=== PATIENT | female | born 1960 | race Two or more races ===

== ENCOUNTER 2025-03-20 11:47 | Emergency (ER) | payer BC, SELFPAY ==
--- NOTE | 2025-03-20 11:56 | EKG_ITS ---
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
[2025-03-20 12:06] VITALS: BP 192/74; PULSE 72; RESP 18; TEMP 36.5; O2SAT 98; BMI 35.9
[2025-03-20 13:12] VITALS: BP 157/70; PULSE 81; RESP 16; TEMP 36.7; O2SAT 96
--- NOTE | 2025-03-20 13:28 | XR_ITS ---
Examination: CT brain head without contrast. 2-D sagittal coronal reconstructions Date and time of exam:March 20, 2025 1600 hours INDICATIONS: Generalized headaches and dizziness onset today CTDI: vol (mGy):49 DLP: (mGycm):947 Technique: Multiple CT axial sections of the brain have been obtained, 5 mm slice thickness. Contrast has not been administered. 2-D sagittal, coronal reconstructions have been obtained Low dose protocols were performed. One or more of the following dose reduction techniques were used; automated exposure control, adjustment of the mA and/or KV according to patient size, use of iterative reconstruction technique. Findings: No significant ventricular enlargement. Intra-axial or extra-axial hemorrhage density is not seen. No mass effect or midline shift Basal cisterns are not remarkable. Fourth ventricle is midline. Cranial vault intact. Impression: Negative for acute hemorrhage, mass effect or midline shift Advise clinical correlation and follow-up accordingly
--- NOTE | 2025-03-20 13:28 | XR_ITS ---
Examination: PA lateral chest 2 views TECHNIQUE: Upright PA lateral chest 2 views Date and time: March 20, 2025 1539 hours INDICATIONS: Chest pain beginning 2 days ago. FINDINGS: Normal heart size Lungs are clear. The osseous structures are intact IMPRESSION: No active disease
[2025-03-20 13:58] LABS: Basophils # (Auto) 0.1 Thou/mm3 (0.0-0.2); Basophils % (Auto) 1 % (0-2.5); Eosinophils # (Auto) 0.3 Thou/mm3 (0.0-0.5); Eosinophils % (Auto) 2 % (0-10); Hematocrit 37.7 % (36.0-46.0); Hemoglobin 12.5 g/dL (12.0-16.0); Immature Granulocytes % (Auto) 1 % (0-0); Immature Granulocytes Auto 0.06 Thou/mm3 (0.00-0.00); Lymphocytes # (Auto) 1.7 Thou/mm3 (1.0-4.8); Lymphocytes % (Auto) 16 % (10-50); Mean Corpuscular HGB Conc 33.2 g/dl (31.0-37.0); Mean Corpuscular Hemoglobin 25.3 pg (25.0-35.0); Mean Corpuscular Volume 76 fL (80-100); Monocytes # (Auto) 0.4 Thou/mm3 (0.0-0.8); Monocytes % (Auto) 4 % (0-12); Neutrophils # (Auto) 8.1 Thou/mm3 (1.8-7.7); Neutrophils % (Auto) 76 % (37-80); Nucleated Red Blood Cell % 0 /100 WBC (0); Platelet Count 354 Thou/mm3 (140-440); RDW Standard Deviation 37.8 fL (36.4-46.3); Red Blood Count 4.94 Miln/mm3 (4.00-5.20); White Blood Count 10.6 Thou/mm3 (3.6-11.0)
[2025-03-20 14:18] LABS: B-Type Natriuretic Peptide 56 pg/mL (0-100)
[2025-03-20 14:20] LABS: Alanine Aminotransferase 33 U/L (10-49); Albumin, Serum 4.7 gm/dL (3.4-4.8); Albumin/Globulin Ratio 1.9 (1.2-2.2); Alkaline Phosphatase 91 U/L (46-116); Anion Gap 5 (7-16); Aspartate Amino Transferase 24 U/L (0-34); BUN/Creatinine Ratio 16 Ratio (12-20); Bilirubin,Total 0.5 mg/dL (0.3-1.2); Blood Urea Nitrogen 24 mg/dL (9-23); Calcium 9.8 mg/dL (8.3-10.6); Calcium (Corrected) 9.8 mg/dL (8.5-10.1); Carbon Dioxide 25.9 mMol/L (20.0-31.0); Chloride 107 mMol/L (98-107); Creatinine (Component) 1.5 mg/dL (0.6-1.3); Estimated Creatinine Clearance 38.3 mL/min (>60); Globulin 2.5 gm/dL (2.3-3.5); Glucose 158 mg/dL (74-106); Lipase 46 U/L (12-53); Osmolality,Calculated 282 (275-295); Potassium 5.1 mMol/L (3.4-5.1); Sodium 138 mMol/L (136-145); Total Protein 7.2 gm/dL (5.7-8.2); Troponin I < 0.020 ng/mL (0.0-0.045); eGFR 39 See Note
--- NOTE | 2025-03-20 16:00 | PD.RESCONSUL ---
HPI Data of Consult Primary Care Provider: Physician No Primary/Family Consult Narrative cc:: cc: Exam Vital Signs Temp Pulse Resp BP Pulse Ox O2 Del Method 98.1 F 81 16 157/70 H 96 Room Air 03/20/25 13:12 03/20/25 13:12 03/20/25 13:12 03/20/25 13:12 03/20/25 13:12 03/20/25 13:12 Results Labs 03/20/25 13:52 03/20/25 13:52 Labs: Short CBC 03/20/25 Range/Units 13:52 WBC 10.6 (3.6-11.0) Thou/mm3 Hgb 12.5 (12.0-16.0) g/dL Hct 37.7 (36.0-46.0) % Plt Count 354 (140-440) Thou/mm3 BMP 03/20/25 13:52 Sodium 138 Potassium 5.1 Chloride 107 Carbon Dioxide 25.9 BUN 24 H Creatinine 1.5 H Glucose 158 H Calcium 9.8 Cardiac Enzymes 03/20/25 Range/Units 13:52 Troponin I < 0.020 (0.0-0.045) ng/mL Liver Function 03/20/25 Range/Units 13:52 Total Bilirubin 0.5 (0.3-1.2) mg/dL AST 24 (0-34) U/L ALT 33 (10-49) U/L Alkaline Phosphatase 91 (46-116) U/L Albumin 4.7 (3.4-4.8) gm/dL Medications Home Medications and Allergies Home Medications ?Medication ?Instructions ?Recorded ?Confirmed ?Type amlodipine 10 mg tablet (Norvasc) 10 mg PO QDAY #0 tabs 11/08/15 History ibuprofen 800 mg tablet 800 mg PO Q8HR PRN PAIN #0 tabs 11/08/15 History lisinopril 40 mg tablet 40 ml PO QDAY #0 tabs 11/08/15 History metformin 500 mg tablet 500 mg PO BIDAC #0 tabs 11/08/15 History (Glucophage) ranitidine HCl 150 mg tablet 150 mg PO BID #0 tabs 11/08/15 History (Zantac) Allergies Allergy/AdvReac Type Severity Reaction Status Date / Time Sulfa (Sulfonamide AdvReac Mild Rash Verified 03/20/25 11:52 Antibiotics)
--- NOTE | 2025-03-20 17:26 | PD.EDDIZZY ---
ED Dizzyness RME/HPI General Chief Complaint: Dizziness Stated Complaint: HTN,numbness left side, dizzy Time Seen by Provider: 03/20/25 13:27 Arrival date/time: 03/20/25 11:47 RME / HPI RME / HPI Narrative: 65-year-old female with history of hypertension and diabetes over the past 30 years presents to emergency department with complaint of dizziness patient states that she had an MRI in 2017 requiring 2 stents and 1 more stent was placed in 2020 for patient states she recently moved back from [place] back to the [place] and has not establish care with a visual merchandising specialist yet. She denies chest pain she attests to numbness and tingling to left upper extremity she denies shortness of breath. Related Data Home Medications ?Medication ?Instructions ?Recorded ?Confirmed amlodipine 10 mg tablet (Norvasc) 10 mg PO QDAY #0 tabs 11/08/15 ibuprofen 800 mg tablet 800 mg PO Q8HR PRN PAIN #0 tabs 11/08/15 lisinopril 40 mg tablet 40 ml PO QDAY #0 tabs 11/08/15 metformin 500 mg tablet 500 mg PO BIDAC #0 tabs 11/08/15 (Glucophage) ranitidine HCl 150 mg tablet 150 mg PO BID #0 tabs 11/08/15 (Zantac) Allergies Allergy/AdvReac Type Severity Reaction Status Date / Time Sulfa (Sulfonamide AdvReac Mild Rash Verified 03/20/25 11:52 Antibiotics) Review of Systems Review of Systems Systems Reviewed: All systems reviewed, normal except as documented Constitutional Constitutional: Reports system reviewed and no additional complaints, except as documented ENT Ears, Nose, Mouth, and Throat: Reports system reviewed and no additional complaints, except as documented Cardiovascular Cardiovascular: Reports system reviewed and no additional complaints, except as documented Respiratory Respiratory: Reports system reviewed and no additional complaints, except as documented Musculoskeletal Musculoskeletal: Reports system reviewed and no additional complaints, except as documented ED Exam General General appearance: Present in no apparent distress Head Head exam: Present atraumatic and normocephalic ENT ENT exam: Present normal exam and normal oropharynx Chest Chest inspection: Present normal inspection and symmetric chest wall rise Respiratory Respiratory exam: Present normal lung sounds bilaterally Cardiovascular Cardiovascular exam: Present regular rate and normal rhythm Extremities Exam Extremities exam: Present normal inspection and full ROM Neurological Exam Neurological exam: Present alert, oriented X3 and CN II-XII intact Psychiatric Psychiatric exam: Present normal affect and normal mood Course Quality Measures none Orders Category Date Time Status EKG (ED ONLY) *Do not use* NOW Care 03/20/25 11:56 Completed Consult to Cardiology Stat Cons 03/20/25 17:[address] head/brain wo con Stat Exams 03/20/25 13:28 Completed EKG (ED Only) Stat Exams 03/20/25 11:56 Draft XR chest 2V Stat Exams 03/20/25 13:28 Completed B-Type Natriuretic Peptide Stat Lab 03/20/25 13:52 Completed CBC Stat Lab 03/20/25 13:52 Completed Comprehensive Metabolic Panel Stat Lab 03/20/25 13:52 Completed Lipase Stat Lab 03/20/25 13:52 Completed Troponin I Stat Lab 03/20/25 13:52 Completed Vital Signs Vital signs: Vital Signs Temperature 97.7 F 03/20/25 12:06 Pulse Rate 72 03/20/25 12:06 Respiratory Rate 18 03/20/25 12:06 Blood Pressure 192/74 H 03/20/25 12:06 Pulse Oximetry (%) 98 03/20/25 12:06 Oxygen Delivery Method Room Air 03/20/25 12:06 Dizziness MDM Narrative MDM Narrative:: patient with hx of DM and previous PA presents to ED with complaints of dizziness and numbness to left arm. Labs, EKG and imaging studies were unremarkable, patient remained afebrile, non toxic appearing, in no cardiac or respiratory distress through out ED stay, encouraged to f/up with PCP for Cardiac referral no life threatening emergency noted at today's ED visit. Patient data External records reviewed:: None Clinical information provided by:: patient Social determinants that could affect healthcare access:: none Patient has the following chronic illnesses:: DM, Hx of PA with stent placement How is presenting disease/condition affected by chronic disease/condition?: exacerbated by Evaluation data The following diagnostics were reviewed and interpreted by me:: lab results, radiology exam(s) and EKG tracing(s) Lab and/or radiology exams considered but not ordered:: both considered and ordered Interpretation Summary: unremarkable labs, EKG and imaging study Medications / Prescriptions Medications or Prescriptions considered but not ordered:: na Medication administrations:: na Consultations Consultation(s) initiated? (list below): No Diagnosis Dizziness Differential Diagnosis: adverse reaction to drug, benign paroxysmal positional vertigo, orthostatic hypotension, cerebrovascular accident and transient cerebral ischemia Most likely diagnosis given after review of the tests above:: stress reaction Admission Indicated Admission indicated?: not indicated Admission Request Was there a request for admission?: No Disposition Plan Disposition Plan: Discharge Discharge Attestation Discharge Attestation: The patient and all family members were given an opportunity to ask questions and understood the discharge instructions. Discharge instructions specifically effects, indications for sooner follow up or return to the emergency department, and the expected course of current diagnosis. Patient condition: Stable Discharge Plan Plan Patient Disposition: HOME (Self Care) Prescriptions/Referrals Prescriptions/Med Rec: No Action metformin [Glucophage] 500 MG tablet 500 mg PO BIDAC Qty: 0 ibuprofen 800 MG tablet 800 mg PO Q8HR PRN (Reason: PAIN) Qty: 0 amlodipine [Norvasc] 10 MG tablet 10 mg PO QDAY Qty: 0 lisinopril 40 MG tablet 40 ml PO QDAY Qty: 0 ranitidine HCl [Zantac] 150 MG tablet 150 mg PO BID Qty: 0 Referrals: No Primary/Family,Physician [Primary Care Provider] - In 1 week Problem List Clinical Impression: Dizziness Patient/Caregiver Discharge Instructions Education Materials: ED Dizziness, Uncertain Cause Print Language: Telugu Stand Alone Forms: [employer] Info., Patient Portal Info Letter
[2025-03-20 19:02] VITALS: BP 184/84; PULSE 77; RESP 17; TEMP 36.7; O2SAT 98
--- NOTE | 2025-03-20 19:04 | PC.NURSE ---
notified provider of blood pressure 184/84. per provider pt is ok for discharge. provider spoke to patient regarding results. no questions or concerns at this time.
--- NOTE | 2025-03-20 21:10 | PD.EVENT ---
Documentation for date of: 03/20/25 Event Note Event Note: Family requested me to see the pt but patient was discharged before I evalueted the patient with instructions to follow up with PCP and cardiology.
== END 2025-03-20 19:15 | disposition home or self-care (01) ==
PROVIDERS: Physician Assistant; Emergency Provider Emergency Medicine
DX: R42 Dizziness and giddiness (principal); R07.9 Chest pain, unspecified; R51.9 Headache, unspecified; R94.31 Abnormal electrocardiogram [ECG] [EKG]
CPT/HCPCS: 36415; 70450; 71046; 80053; 83690; 83880; 84484; 85025; 93005; 99284

== ENCOUNTER → 2025-05-16 | Outpatient (CLI) | payer BC, SELFPAY ==
[2025-05-16 13:12] LABS: Basophils # (Auto) 0.1 Thou/mm3 (0.0-0.2); Basophils % (Auto) 1 % (0-2.5); Eosinophils # (Auto) 0.3 Thou/mm3 (0.0-0.5); Eosinophils % (Auto) 4 % (0-10); Hematocrit 36.4 % (36.0-46.0); Hemoglobin 11.8 g/dL (12.0-16.0); Immature Granulocytes Auto 0.03 Thou/mm3 (0.00-0.00); Lymphocytes # (Auto) 1.6 Thou/mm3 (1.0-4.8); Lymphocytes % (Auto) 18 % (10-50); Mean Corpuscular HGB Conc 32.4 g/dl (31.0-37.0); Mean Corpuscular Hemoglobin 25.3 pg (25.0-35.0); Mean Corpuscular Volume 78 fL (80-100); Monocytes # (Auto) 0.5 Thou/mm3 (0.0-0.8); Monocytes % (Auto) 5 % (0-12); Neutrophils # (Auto) 6.1 Thou/mm3 (1.8-7.7); Neutrophils % (Auto) 72 % (37-80); Nucleated Red Blood Cell # 0.00 Thou/mm3 (0.00-0.00); Nucleated Red Blood Cell % 0 /100 WBC (0); Platelet Count 370 Thou/mm3 (140-440); RDW Standard Deviation 39.5 fL (36.4-46.3); Red Blood Count 4.66 Miln/mm3 (4.00-5.20); White Blood Count 8.6 Thou/mm3 (3.6-11.0)
[2025-05-16 13:23] LABS: Glucose Estimated Average 171 mg/dL (80-131); Hemoglobin A1C 7.6 % Hgb (4.8-6.0)
[2025-05-16 13:31] LABS: Vitamin B12 549 pg/mL (211-911); Vitamin D 25 Hydroxy Total 27.3 ng/mL (7.3-40.2)
[2025-05-16 13:49] LABS: Alanine Aminotransferase 19 U/L (10-49); Albumin, Serum 4.1 gm/dL (3.4-4.8); Albumin/Globulin Ratio 2.2 (1.2-2.2); Alkaline Phosphatase 76 U/L (46-116); Anion Gap 10 (7-16); Aspartate Amino Transferase 18 U/L (0-34); BUN/Creatinine Ratio 15 Ratio (12-20); Bilirubin,Total 0.4 mg/dL (0.3-1.2); Blood Urea Nitrogen 20 mg/dL (9-23); Calcium 9.9 mg/dL (8.3-10.6); Calcium (Corrected) 9.9 mg/dL (8.5-10.1); Carbon Dioxide 27.1 mMol/L (20.0-31.0); Cardiac Risk Estimate 4.8 RATIO (3.7-5.6); Chloride 106 mMol/L (98-107); Cholesterol 172 mg/dL (132-200); Creatinine (Component) 1.3 mg/dL (0.6-1.3); Globulin 1.9 gm/dL (2.3-3.5); Glucose 110 mg/dL (74-106); HDL Cholesterol 36 mg/dL (40-60); LDL Cholesterol,Calculated 106 mg/dL (0-130); Osmolality,Calculated 288 (275-295); Potassium 4.4 mMol/L (3.4-5.1); Sodium 143 mMol/L (136-145); Thyroid Stimulating Hormone 1.93 uIU/mL (0.55-4.78); Total Protein 6.0 gm/dL (5.7-8.2); Triglycerides 150 mg/dL (30-150); eGFR 46 See Note
[2025-05-16 14:00] LABS: Uric Acid 7.5 mg/dL (3.1-7.8)
== END | disposition home or self-care (01) ==
PROVIDERS: PCP Internal Medicine; Referring Provider Internal Medicine; Visit Provider Internal Medicine
DX: Z00.00 Encounter for general adult medical examination without abnormal findings (principal); E11.9 Type 2 diabetes mellitus without complications; I10 Essential (primary) hypertension; E78.5 Hyperlipidemia, unspecified
CPT/HCPCS: 36415; 80053; 80061; 81001; 82306; 82607; 83036; 84443; 84550; 85025

== ENCOUNTER → 2025-05-30 | Outpatient (CLI) | payer BC, SELFPAY ==
[2025-05-30 13:47] LABS: Collection Type, Urine Clean Catch
[2025-05-30 14:14] LABS: Basophils # (Auto) 0.1 Thou/mm3 (0.0-0.2); Basophils % (Auto) 1 % (0-2.5); Eosinophils # (Auto) 0.2 Thou/mm3 (0.0-0.5); Eosinophils % (Auto) 3 % (0-10); Hematocrit 38.1 % (36.0-46.0); Hemoglobin 12.1 g/dL (12.0-16.0); Immature Granulocytes Auto 0.02 Thou/mm3 (0.00-0.00); Lymphocytes # (Auto) 1.5 Thou/mm3 (1.0-4.8); Lymphocytes % (Auto) 17 % (10-50); Mean Corpuscular HGB Conc 31.8 g/dl (31.0-37.0); Mean Corpuscular Hemoglobin 25.4 pg (25.0-35.0); Mean Corpuscular Volume 80 fL (80-100); Monocytes # (Auto) 0.5 Thou/mm3 (0.0-0.8); Monocytes % (Auto) 5 % (0-12); Neutrophils # (Auto) 6.8 Thou/mm3 (1.8-7.7); Neutrophils % (Auto) 74 % (37-80); Nucleated Red Blood Cell # 0.00 Thou/mm3 (0.00-0.00); Nucleated Red Blood Cell % 0 /100 WBC (0); Platelet Count 398 Thou/mm3 (140-440); RDW Standard Deviation 40.7 fL (36.4-46.3); Red Blood Count 4.77 Miln/mm3 (4.00-5.20); White Blood Count 9.1 Thou/mm3 (3.6-11.0)
[2025-05-30 14:20] LABS: Bilirubin,Urine Negative (Negative); Blood,Urine Negative (Negative); Clarity,Urine Clear (Clear/Hazy); Color,Urine Lt-Yellow (Lt Yel-Yel); Glucose, Urine Negative (Negative); Ketones,Urine Negative (Negative); Leukocyte Esterase,Urine Negative (Negative); Nitrite,Urine Negative (Negative); PH,Urine 6.0 (5.0-7.0); Protein,Urine 2+ (Neg - Trace); RBC,Urine 1 /hpf (0-3); Specific Gravity,Urine 1.015 (1.001-1.035); Squamous Epithelial Cell,Urine < 1 /hpf (0-5); Urobilinogen,Urine Negative mg/dL (0.0-1.0); WBC,Urine 2 /hpf (0-5)
[2025-05-30 14:47] LABS: Creatinine MALB Rnd Ur 66 mg/dL (30-125); Microalbumin Creat Ratio 2388 mg/gCrea (<30); Microalbumin, Random Urine 1576 mg/L (0-300)
[2025-06-05 06:35] LABS: ANA Pattern NUCLEAR, NUCLEOLAR; ANA Screen, IFA POSITIVE (NEGATIVE); ANA Titer 1:80 titer; CCP Antibody (IgG)* <16 Units; DNA (ds) Antibody* 1 IU/mL
== END | disposition home or self-care (01) ==
LOC: COPL 12:26
PROVIDERS: PCP Internal Medicine; Referring Provider Internal Medicine; Visit Provider Internal Medicine
DX: M12.38 Palindromic rheumatism, other specified site (principal); E11.9 Type 2 diabetes mellitus without complications
CPT/HCPCS: 36415; 81001; 82043; 82570; 85025; 86038; 86039; 86200; 86225

== ENCOUNTER 2025-06-04 23:47 | Inpatient (IN) | payer BC, SELFPAY ==
[2025-06-04 23:56] VITALS: BMI 39.0
[2025-06-04 23:57] VITALS: BP 199/93; PULSE 102; RESP 19; TEMP 36.7; O2SAT 96
[2025-06-05] VITALS (22 sets, daily range): BP systolic 131–231; BP diastolic 57–111; PULSE 59–97; RESP 15–24; TEMP 35.9–37.1; O2SAT 92–100; BMI 39.2
--- NOTE | 2025-06-05 00:20 | PD.EDCHEST ---
ED Chest Pain RME/HPI General Chief Complaint: Chest Pain Stated Complaint: CHEST PAIN Time Seen by Provider: 06/05/25 00:38 Arrival date/time: 06/04/25 23:47 RME / HPI RME / HPI narrative: Dr. Bush?s Main ED Evaluation: 65yo female with known CAD/CHF undergoing changes in antihypertensive regimen presenting with intermittent substernal chest pain lasting several months in duration with increasing frequency and intensity in the last 24 hrs. Patient notified EMS, who administered baby aspirin and nitroglycerin with transient improvement. Associated chest pressure, shortness of breath, occasional lightheadedness, but no near syncope. No palpitations. Noted exertional component, but denies pleuritic component. PMH includes DM, HTN, CAD/CHF. No history of FL, aFib. PSH included coronary artery stent placement (3 stents) in 2016 and 2023. Social history unremarkable. Related Data Home Medications ?Medication ?Instructions ?Recorded ?Confirmed amlodipine 10 mg tablet (Norvasc) 10 mg PO QDAY #0 tabs 11/08/15 ibuprofen 800 mg tablet 800 mg PO Q8HR PRN PAIN #0 tabs 11/08/15 lisinopril 40 mg tablet 40 ml PO QDAY #0 tabs 11/08/15 metformin 500 mg tablet 500 mg PO BIDAC #0 tabs 11/08/15 (Glucophage) ranitidine HCl 150 mg tablet 150 mg PO BID #0 tabs 16 (Zantac) Allergies Allergy/AdvReac Type Severity Reaction Status Date / Time Sulfa (Sulfonamide AdvReac Mild Rash Verified 03/20/25 11:52 Antibiotics) Review of Systems Review of Systems Systems Reviewed: All systems reviewed, normal except as documented Past Medical History Social History SMOKING STATUS: Never smoker ED Exam Narrative Physical exam: GENERAL APPEARANCE: alert and oriented x 4, well-developed, well-nourished, no acute distress VITALS: All vitals were reviewed and the pulse ox is 98% on room air, which is normal according to my interpretation. Markedly hypertensive. HEENT: Normocephalic, atraumatic; pupils equal, round, reactive to light; EOMI; mucous membranes pink, moist; oropharynx clear NECK: Supple, no JVD LUNGS: CTABL; no wheezes, no rales, no rhonchi HEART: Regular rate, regular rhythm; normal S1, S2; no murmurs ABDOMEN: non distended; normal BS; soft, no tenderness, no guarding, no rebound; no masses, no organomegaly, no hernia BACK: no CVA tenderness EXTREMITIES: atraumatic; no edema NEUROLOGIC: awake; alert and oriented x4; cranial nerves II-XII grossly intact; no focal sensory or motor deficits PSYCHIATRIC: appropriate mood and affect SKIN: warm, dry, normal color; no rashes Course Course Course Narrative: CXR is ordered for determining the etiology of chest pain. Quality Measures none Orders Category Date Time Status Retail Assistant Manager STAT Care 06/05/25 00:40 Active Continuous Pulse Oximetry ONCE Care 06/05/25 00:40 Active EKG (ED ONLY) *Do not use* NOW Care 06/05/25 00:40 Completed EKG (ED ONLY) *Do not use* NOW Care 06/05/25 04:05 Completed Insert IV NOW Care 06/05/25 00:40 Active Insert IV STAT Care 06/05/25 00:40 Active EKG (ED Only) Stat Exams 06/05/25 00:40 Draft EKG (ED Only) Stat Exams 06/05/25 04:05 Ordered XR chest 1V portable Stat Exams 06/05/25 00:40 Taken B-Type Natriuretic Peptide Stat Lab 06/05/25 01:13 Completed CBC Stat Lab 06/05/25 01:13 Completed Comprehensive Metabolic Panel Stat Lab 06/05/25 01:13 Completed Magnesium Stat Lab 06/05/25 01:13 Completed Troponin I Stat Lab 06/05/25 01:13 Completed Troponin I Stat Lab 06/05/25 03:00 Completed Troponin I Stat Lab 06/05/25 05:00 Ordered Diltiazem Inj [Cardizem Inj] Med 06/05/25 00:31 Discontinued 10 mg IV X1 ONE Diltiazem Inj [Cardizem Inj] Med 06/05/25 04:19 Discontinued 10 mg IV X1 ONE Insulin Regular Med 06/05/25 03:14 Discontinued 8 unit IV X1 ONE Morphine* Inj Med 06/05/25 00:31 Discontinued 4 mg IVP X1 ONE Nitroglycerin Oint 2% [Nitro-paste Oint 2%] Med 06/05/25 00:19 Discontinued 2 inch TOP X1 ONE Prochlorperazine Inj [Compazine Inj] Med 06/05/25 00:31 Discontinued 5 mg IV X1 ONE Sodium Chloride 0.9% 250 ml [Ns] 250 ml Med 06/05/25 00:40 Discontinued IV 250 mls/hr amLODIPine BESYLATE [Norvasc] Med 06/05/25 04:27 Discontinued 10 mg PO X1 ONE Oxygen Delivery NOW RT 06/05/25 00:40 Active Vital Signs Vital signs: Vital Signs Temperature 98.1 F 06/04/25 23:57 Pulse Rate 102 H 06/04/25 23:57 Respiratory Rate 19 06/04/25 23:57 Blood Pressure 199/93 H 06/04/25 23:57 Pulse Oximetry (%) 96 06/04/25 23:57 Oxygen Delivery Method Room Air 06/04/25 23:57 Chest Pain MDM Narrative MDM Narrative:: Scribe Attestation: 06/05/25 - ILisa am scribing for and in the presence of Dr. Bush. 65yo female with known CAD/CHF undergoing changes in antihypertensive regimen presenting with intermittent substernal chest pain lasting several months in duration with increasing frequency and intensity in the last 24 hrs. Patient notified EMS, who administered baby aspirin and nitroglycerin with transient improvement. Please see PE findings. Lab markers demonstrated marginally elevated WBC count of 12, chronic anemia with Hgb 11.1, left shift without bandemia. Chemistries notable for elevated bslood sugar of 660 without anion gap, Creatinine mildly elevated with diminished GFR 39, initial troponin undetected, BNP 195. CXR demonstrated mild cardiomegaly without overt pulmonary edema, infiltrate, or pneumothorax. EKG without signs of evolving FL. Patient placed on fishing tackle repairer, marked hypertensive and treated with a combination of topical nitrates, IV narcotic analgesics, and CCBs with gradual reduction of blood pressure. Patient received IV fluids and regular insulin for hyperglycemia. No signs of ketosis. Patient underwent serial troponin and EKG with markedly increased troponin in the span of 2 hours which is likely due to hypertensive episode although cannot r/o underlying myocardial ischemia. Patient will be admitted for further monitoring and treatment. Dx: hypertensive urgency, NSTEMI, chronic renal insufficiency, hyperglycemia without ketosis Patient data External records reviewed:: [facility] previous records (Per chart review, patient was seen here on 03/20/25 for dizziness.) Clinical information provided by:: patient Social determinants that could affect healthcare access:: none Patient has the following chronic illnesses:: DM, HTN, CAD/CHF How is presenting disease/condition affected by chronic disease/condition?: exacerbated by Evaluation data The following diagnostics were reviewed and interpreted by me:: lab results, radiology exam(s) and EKG tracing(s) Lab and/or radiology exams considered but not ordered:: none Interpretation Summary: CXR shows mild cardiomegaly, no overt pulmonary edema, pleural effusions, infiltrate, or pneumothorax, according to my interpretation. EKG done at 2351, sinus tachycardia, rate of 101, no acute pathological ST segment changes, evidence of previous inferior wall FL, no ectopy, according to my interpretation. Repeat EKG done at 0442, sinus rhythm, rate of 86, no acute pathological ST segment changes, evidence of previous inferior wall FL, no ectopy, according to my interpretation. Medications / Prescriptions Medications or Prescriptions considered but not ordered:: none Medication administrations:: Medication Administration History Discontinued Medications Amlodipine Besylate (Amlodipine Besylate 5 Mg Tablet) 10 mg PO X1 ONE Stop: 06/05/25 04:28 Diltiazem HCl (Diltiazem Inj 5 Mg/Ml Vial 5 Ml) 10 mg IV X1 ONE Stop: 06/05/25 00:32 Last Admin: 06/05/25 00:52 Dose: 10 mg Documented By: ABAD Diltiazem HCl (Diltiazem Inj 5 Mg/Ml Vial 5 Ml) 10 mg IV X1 ONE Stop: 06/05/25 04:20 Last Admin: 06/05/25 04:31 Dose: Not Given Documented By: ABAD Non-Admin Reason: Discontinued Sodium Chloride (Ns) 250 mls @ 250 mls/hr IV .Q1H ONE Stop: 06/05/25 01:39 Last Infusion: 06/05/25 01:54 Dose: Infused Documented By: Admin: 06/05/25 00:54 Dose: 250 mls/hr Documented By: ABAD Insulin Human Regular (Insulin Hum Regular 1 Unit/0.01 Ml (Per Unit)) 8 unit IV X1 ONE Stop: 06/05/25 03:15 Last Admin: 06/05/25 03:51 Dose: 8 unit Documented By: ABAD Co-signed By: SRIKANTH Morphine Sulfate (Morphine Sulf Inj 4 Mg/Ml Vial) 4 mg IVP X1 ONE Stop: 06/05/25 00:32 Last Admin: 06/05/25 00:59 Dose: 4 mg Documented By: ABAD Nitroglycerin (Nitroglycerin Oint 2% 1 Inch Packet) 2 inch TOP X1 ONE Stop: 06/05/25 00:20 Last Admin: 06/05/25 00:34 Dose: 2 inch Documented By: [email or web address] Prochlorperazine Edisylate (Prochlorperazine Inj 5 Mg/Ml Vial 2 Ml) 5 mg IV X1 ONE; Protocol Stop: 06/05/25 00:32 Last Admin: 06/05/25 00:55 Dose: 5 mg Documented By: [email or web address] see above Consultations Consultation(s) initiated? (list below): Yes Consultation #1 (Physician, Specialty, Details): Discussed case with the resident physician, attending Dr. Guadalupe from Hospitalist service regarding admission. Discussed patients ED course, exam findings, labs, and radiology results. The Hospitalist agrees to accept the patient for admission. Time: 04:31 Diagnosis Chest Pain Differential Diagnosis: stable angina, unstable angina pectoris, atypical chest pain, st elevation myocardial infarction, costochondritis and other (NSTEMI, ACS) Most likely diagnosis given after review of the tests above:: see clinical impression below Admission Indicated Admission indicated?: indicated Admission Request Was there a request for admission?: Yes Admission Attestation Admission request attestation: Discussed case with [] from Hospitalist service regarding admission. Discussed patients ED course, exam findings, labs, and radiology results. The Hospitalist [agrees,declines] to accept the patient for admission. Disposition Plan Disposition Plan: Admit Critical Care Time Critical Care Time Critical Care Time: Yes Total Critical Care Time (min.): 40 Attestation: The high probability of sudden, clinically significant deterioration in the patient?s condition required the highest level of my preparedness to intervene urgently. The services I provided to this patient were to treat and/or prevent clinically significant deterioration. Services included the following: chart data review, reviewing nursing notes and/or old charts, documentation time, it solutions sales consultant collaboration regarding findings and treatment options, medication orders and management, direct patient care, vital sign assessments and ordering, interpreting and reviewing diagnostic studies and lab tests. Aggregate critical care time includes only time during which I was engaged in work directly related to the patient?s care, as described above, whether at bedside or elsewhere in the Emergency Department. It did not include time spent performing other reported procedures or the services of residents, students, nurses or physician assistants. Discharge Plan Plan Patient Disposition: Admit Acute Care w/in Hospital Prescriptions/Referrals Prescriptions/Med Rec: No Action metformin [Glucophage] 500 MG tablet 500 mg PO BIDAC Qty: 0 ibuprofen 800 MG tablet 800 mg PO Q8HR PRN (Reason: PAIN) Qty: 0 amlodipine [Norvasc] 10 MG tablet 10 mg PO QDAY Qty: 0 lisinopril 40 MG tablet 40 ml PO QDAY Qty: 0 ranitidine HCl [Zantac] 150 MG tablet 150 mg PO BID Qty: 0 Referrals: Bibi Delacruz MD [Primary Care Provider, Nephrology] - In 1 week Problem List Clinical Impression: Hypertensive urgency, Non-ST elevation FL (NSTEMI), Chronic renal insufficiency, Hyperglycemia without ketosis Patient/Caregiver Discharge Instructions Print Language: Faroese Stand Alone Forms: [employer] Info., Patient Portal Info Letter
[2025-06-05] MEDS: NITROGLYCERIN OINT 2% 1 INCH PACKET 2 INCH TOP (00:34)
--- NOTE | 2025-06-05 00:40 | XR_ITS ---
Examination: AP chest single view Technique one AP portable upright chest single view Date and time: June 05, 2025, 0117 hrs., Comparison March 20, 2025 Indications: Chest pain today. Findings: Mild enlargement cardiac contour. Mild to moderate vascular congestion. No lobar pneumonia The osseous structures are intact Impression: Mild enlargement cardiac contour Mild to moderate vascular congestion.
--- NOTE | 2025-06-05 00:40 | EKG_ITS ---
[facility] Test Date: 2025-06-05 Pat Name: NAIN ABDUL Department: Room: - Gender: Female Manager Financial Services: : 1960 Requested By: Aung Askew Order Number: [id number] Reading MD: Aung Askew Measurements Intervals [place] Rate: 86 P: 51 MS: 146 QRS: 21 QRSD: 96 T: 59 QT: 376 QTc: 451 Interpretive Statements SINUS RHYTHM ANTERIOR MYOCARDIAL INFARCTION , OF INDETERMINATE AGE [40+ ms Q WAVE AND/OR ST/T ABNORMALITY IN V3/V4] INFERIOR MYOCARDIAL INFARCTION , PROBABLY OLD [40+ ms Q WAVE AND/OR ST/T ABNORMALITY IN II/aVF] Compared to ECG 03/20/2025 12:08:09 No significant changes /store/S0/[id number]
[2025-06-05] MEDS: DILTIAZEM INJ 5 MG/ML VIAL 5 ML 10 MG IV (00:52)
[2025-06-05] MEDS: SODIUM CHLORIDE 0.9% 250 ML 250 ML IV (00:54)
[2025-06-05] MEDS: PROCHLORPERAZINE INJ 5 MG/ML VIAL 2 ML IV (00:55)
[2025-06-05] MEDS: MORPHINE SULF INJ 4 MG/ML VIAL IVP (00:59)
[2025-06-05 01:28] LABS: Basophils # (Auto) 0.0 Thou/mm3 (0.0-0.2); Basophils % (Auto) 0 % (0-2.5); Eosinophils # (Auto) 0.0 Thou/mm3 (0.0-0.5); Eosinophils % (Auto) 0 % (0-10); Hematocrit 34.9 % (36.0-46.0); Hemoglobin 11.1 g/dL (12.0-16.0); Immature Granulocytes Auto 0.07 Thou/mm3 (0.00-0.00); Lymphocytes # (Auto) 1.0 Thou/mm3 (1.0-4.8); Lymphocytes % (Auto) 8 % (10-50); Mean Corpuscular HGB Conc 31.8 g/dl (31.0-37.0); Mean Corpuscular Hemoglobin 25.3 pg (25.0-35.0); Mean Corpuscular Volume 80 fL (80-100); Monocytes # (Auto) 0.5 Thou/mm3 (0.0-0.8); Monocytes % (Auto) 4 % (0-12); Neutrophils # (Auto) 10.5 Thou/mm3 (1.8-7.7); Neutrophils % (Auto) 87 % (37-80); Nucleated Red Blood Cell # 0.00 Thou/mm3 (0.00-0.00); Nucleated Red Blood Cell % 0 /100 WBC (0); Platelet Count 298 Thou/mm3 (140-440); RDW Standard Deviation 40.7 fL (36.4-46.3); Red Blood Count 4.39 Miln/mm3 (4.00-5.20); White Blood Count 12.0 Thou/mm3 (3.6-11.0)
[2025-06-05 01:42] LABS: B-Type Natriuretic Peptide 195 pg/mL (0-100)
[2025-06-05 01:50] LABS: Alanine Aminotransferase 27 U/L (10-49); Albumin, Serum 4.1 gm/dL (3.4-4.8); Albumin/Globulin Ratio 2.1 (1.2-2.2); Alkaline Phosphatase 140 U/L (46-116); Anion Gap 12 (7-16); Aspartate Amino Transferase 19 U/L (0-34); BUN/Creatinine Ratio 12 Ratio (12-20); Bilirubin,Total 0.3 mg/dL (0.3-1.2); Blood Urea Nitrogen 18 mg/dL (9-23); Calcium 9.4 mg/dL (8.3-10.6); Calcium (Corrected) 9.4 mg/dL (8.5-10.1); Carbon Dioxide 25.5 mMol/L (20.0-31.0); Chloride 102 mMol/L (98-107); Creatinine (Component) 1.5 mg/dL (0.6-1.3); Estimated Creatinine Clearance 38.5 mL/min (>60); Globulin 2.0 gm/dL (2.3-3.5); Magnesium 1.8 mg/dL (1.6-2.6); Osmolality,Calculated 310 (275-295); Potassium 4.6 mMol/L (3.4-5.1); Sodium 139 mMol/L (136-145); Total Protein 6.1 gm/dL (5.7-8.2); Troponin I < 0.020 ng/mL (0.0-0.045); eGFR 39 See Note
[2025-06-05 01:52] LABS: Glucose 660 mg/dL (74-106)
[2025-06-05] MEDS: INSULIN HUM REGULAR 1 UNIT/0.01 ML (PER UNIT) 8 UNIT IV (03:51)
[2025-06-05 04:03] LABS: Troponin I 0.189 ng/mL (0.0-0.045)
--- NOTE | 2025-06-05 04:05 | EKG_ITS ---
[facility] [place] Test Date: 2025-06-05 Pat Name: NAIN ABDUL Department: Room: - Gender: Female Cardiac Monitor: RAQUEL : 1960 Requested By: Aung Askew Order Number: [id number] Reading MD: Aung Askew Measurements Intervals [place] Rate: 74 P: 63 DC: 170 QRS: 47 QRSD: 104 T: 90 QT: 412 QTc: 458 Interpretive Statements SINUS RHYTHM INFERIOR MYOCARDIAL INFARCTION , PROBABLY OLD Compared to ECG 06/05/2025 04:42:28 No significant changes /store/S0/[id number]
--- NOTE | 2025-06-05 05:21 | ECHO_ITS ---
Transthoracic Echo Report Ht (in): 60 Wt (lb): 200 Exam Location: Echo Lab Status: Emergency Acoustical Logging Engineer: Renetta Day Indications: Procedure Performed: BP: 178 / 80 HR: 90 FINDINGS Left Ventricle Mild LVH.There is grade I diastolic dysfunction of the left ventricle (impaired relaxation pattern). The ejection fraction is visually estimated at 50-55%. Right Ventricle The right ventricle is normal in size and systolic function. The estimated right ventricular systolic pressure, 30 mmHg. Left Atrium The left atrial cavity size is mildly increased. Right Atrium The right atrium is normal by two-dimensional imaging, color flow and Doppler imaging with no structural abnormalities, no thrombus formation present. Atrial Septum The interatrial septum appears normal with no evidence of a shunt. Aorta The aorta is normal by two-dimensional, color flow and Doppler interrogation. Mitral Valve The mitral valve is normal by two-dimensional, color flow and Doppler interrogation. Trace to mild mitral regurgitation. Aortic Valve Aortic valve sclerosis without stenosis Tricuspid Valve The tricuspid valve is normal by two-dimensional, color flow and Doppler interrogation. There is mild tricuspid valve regurgitation. Pulmonic Valve The pulmonic valve is not well visualized. There is no significant pulmonic valve regurgitation. Vessels The pulmonary artery appears normal. The inferior vena cava pulmonary and hepatic veins appear normal. Pericardium The pericardium is normal by two-dimensional imaging. There is no significant pericardial effusion. CONCLUSIONS Indication: Chest pain, HX of CHF Normal LV size and function. Mild LVH. Grade I diastolic dysfunction. EF estimated 60-65 % Normal RV size and function. RVSP mildly elevated at 30 to 35 mmHg. Mild aortic valve sclerosis without stenosis. Mild TR and MR No significant pericardial effusion. IVC was not visualized well. Alan Soares (Electronically Signed) Final Date: 06 June 2025 04:35
--- NOTE | 2025-06-05 05:25 | PD.RESHP ---
Documentation for date of: 06/05/25 HPI History of Present Illness Chief complaint: chest pain History of present illness: Patient is a 65-year-old female with a medical history of hypertension, type 2 diabetes mellitus, and coronary artery disease (CAD) status post three stent placements. She presented to the emergency department on 06/05/2025 with a chief complaint of acute chest pain. The patient reports the onset of substernal chest pain this morning, described as a pressure-like sensation radiating to the right side of her neck. The intensity of the pain is rated as 6/10. She also experiences shortness of breath associated with the chest pain but denies symptoms of palpitations, orthopnea, paroxysmal nocturnal dyspnea and headache. Additionally, the patient notes bilateral leg cramping, which worsens when lying flat or after taking Lasix. She has also experienced occasional lower extremity edema, which resolves intermittently. The patient has a history of a myocardial infarction in 2016, for which two stents were placed. A third stent was placed in 2023; however, she is unsure of the exact locations of the stents. She reports that the current chest pain is different from the pain experienced during her previous FL in 2016. The patient last followed up with a methane gas collection system operator in [place] last year, where a cardiac echocardiogram was performed, revealing congestive heart failure. She does not recall the specific ejection fraction from that exam. The patient is reports taking aspirin and Plavix regularly. Of note patient is currently undergoing changes in antihypertensive regimen per her PCP. ED Course: -Initial vitals were BP 199/93, Pulse 102, RR 18, temp 98.1, O2 sat 96% on room air -Labs significant for WBC 12, hemoglobin 11.1, hematocrit 34.9, creatinine 1.5, eGFR 39, glucose 660, alkaline phosphatase 140, trops 0.189 BNP 195, UA showed microalbumin 1576,microalb/cr ration 2388 -Imaging included CXR demonstrated mild cardiomegaly without overt pulmonary edema, infiltrate, or pneumothorax. EKG showed sinus tachycardia, rate of 101, no acute pathological ST segment changes, evidence of previous inferior wall FL -In the ED, patient was marked hypertensive and treated with a combination of topical nitrates, IV morphine, diltiazem 10 mg with gradual reduction of blood pressure. Patient received IV fluids and regular insulin for hyperglycemia -Patient was admitted for hypertensive emergency and chest pain management. Review of Systems Review of systems otherwise negative except what is mentioned above. Past Medical History: as mention above + asthma Family History: Daughter from ALL, aunt-ovarian cancer, uncle-oropharyngeal cancer Surgical History: Hysterectomy Social History: Denies history of smoking, denies current alcohol use, denies recreational drug use. Patient is , born and raised in [facility]. Used to work in [employer]. Current Medications: Prednisolone 20mg, metformin 500 mg twice daily, clopidogrel 75 daily, famotidine once, glimepiride, furosemide 20 mg twice daily, nitro 0.4, carvedilol 25 mg, hydralazine 50 mg twice daily. Allergies: Sulfa antibiotics/rash Exam Vital Signs Temp Pulse Resp BP Pulse Ox O2 Del Method 98.7 F 89 19 190/78 H 100 Room Air 06/05/25 04:06 06/05/25 04:59 06/05/25 04:24 06/05/25 04:59 06/05/25 04:24 06/05/25 04:24 Narrative Exam General: Sitting comfortably in bed ,alert, no acute distress.Conversational and non-toxic appearing. Skin: Warm, dry, intact. No rash or ecchymoses. Head: Normocephalic, atraumatic. Eye: Normal conjunctiva, PERRL. Throat: Oral mucosa moist. No obvious lesions in oropharynx. Cardiovascular: Regular rate and rhythm, no murmur, +S1/S2. Respiratory: Lungs are clear to auscultation, respirations unlabored, no crackles, no wheezing. Gastrointestinal: Soft, nontender, non-distended. No guarding or rebound tenderness. Extremities: No edema, no cyanosis, no clubbing. Neuro: Alert and oriented x3.No focal deficits observed. Conversant, moving all extremities. No overt cerebellar signs/incoordination. Psychiatric: Cooperative, appropriate affect Results: Labs 06/05/25 01:13 06/05/25 01:13 Labs: Short CBC 06/05/25 Range/Units 01:13 WBC 12.0 H (3.6-11.0) Thou/mm3 Hgb 11.1 L (12.0-16.0) g/dL Hct 34.9 L (36.0-46.0) % Plt Count 298 D (140-440) Thou/mm3 BMP 06/05/25 01:13 Sodium 139 Potassium 4.6 Chloride 102 Carbon Dioxide 25.5 BUN 18 Creatinine 1.5 H Glucose 660 H* Calcium 9.4 Cardiac Enzymes 06/05/25 06/05/25 Range/Units 01:13 03:00 Troponin I < 0.020 0.189 H* (0.0-0.045) ng/mL Liver Function 06/05/25 Range/Units 01:13 Total Bilirubin 0.3 (0.3-1.2) mg/dL AST 19 (0-34) U/L ALT 27 (10-49) U/L Alkaline Phosphatase 140 H (46-116) U/L Albumin 4.1 (3.4-4.8) gm/dL Quality Measures Quality Measures none Medications Home Medications and Allergies Home Medications ?Medication ?Instructions ?Recorded ?Confirmed ?Type amlodipine 10 mg tablet (Norvasc) 10 mg PO QDAY #0 tabs 11/08/15 History ibuprofen 800 mg tablet 800 mg PO Q8HR PRN PAIN #0 tabs 11/08/15 History lisinopril 40 mg tablet 40 ml PO QDAY #0 tabs 11/08/15 History metformin 500 mg tablet 500 mg PO BIDAC #0 tabs 11/08/15 History (Glucophage) ranitidine HCl 150 mg tablet 150 mg PO BID #0 tabs 11/08/15 History (Zantac) Allergies Allergy/AdvReac Type Severity Reaction Status Date / Time Sulfa (Sulfonamide AdvReac Mild Rash Verified 03/20/25 11:52 Antibiotics) Visit Medications Ondansetron HCl (Ondansetron Inj 2 Mg/Ml Inj 2 Ml) 4 mg IVP Q6H PRN; Protocol PRN Reason: NAUSEA OR VOMITING Stop: 07/05/25 05:21 Discontinued Medications Amlodipine Besylate (Amlodipine Besylate 5 Mg Tablet) 10 mg PO X1 ONE Stop: 06/05/25 04:28 Last Admin: 06/05/25 04:59 Dose: 10 mg Diltiazem HCl (Diltiazem Inj 5 Mg/Ml Vial 5 Ml) 10 mg IV X1 ONE Stop: 06/05/25 00:32 Last Admin: 06/05/25 00:52 Dose: 10 mg Diltiazem HCl (Diltiazem Inj 5 Mg/Ml Vial 5 Ml) 10 mg IV X1 ONE Stop: 06/05/25 04:20 Last Admin: 06/05/25 04:31 Dose: Not Given Gabapentin (Gabapentin 300 Mg Capsule) 300 mg PO X1 ONE Stop: 06/05/25 05:24 Sodium Chloride (Ns) 250 mls @ 250 mls/hr IV .Q1H ONE Stop: 06/05/25 01:39 Last Infusion: 06/05/25 01:54 Dose: Infused Insulin Human Regular (Insulin Hum Regular 1 Unit/0.01 Ml (Per Unit)) 8 unit IV X1 ONE Stop: 06/05/25 03:15 Last Admin: 06/05/25 03:51 Dose: 8 unit Morphine Sulfate (Morphine Sulf Inj 4 Mg/Ml Vial) 4 mg IVP X1 ONE Stop: 06/05/25 00:32 Last Admin: 06/05/25 00:59 Dose: 4 mg Nitroglycerin (Nitroglycerin Oint 2% 1 Inch Packet) 2 inch TOP X1 ONE Stop: 06/05/25 00:20 Last Admin: 06/05/25 00:34 Dose: 2 inch Prochlorperazine Edisylate (Prochlorperazine Inj 5 Mg/Ml Vial 2 Ml) 5 mg IV X1 ONE; Protocol Stop: 06/05/25 00:32 Last Admin: 06/05/25 00:55 Dose: 5 mg Assessment & Plan Plan Patient is a 65-year-old female with a medical history of hypertension, type 2 diabetes mellitus, and coronary artery disease (CAD) status post three stent placements. She presented to the emergency department on 06/05/2025 with a chief complaint of acute chest pain. For hypertensive urgency and chest pain workup and management. #Elevated troponin #NSTEMI I vs NSTEMI II #CAD multivessel disease #S/P 2 stents 2016 and 2023 On admission: Troponin 0.189. EKG EKG showed sinus tachycardia, rate of 101, no acute pathological ST segment changes, evidence of previous inferior wall FL. Patient acute pressure-like chest pain radiating to right arm and neck. Hx of 3 stents placement. Reports compliance with PLAVIX/ASA. She likely has NSTEMI type II in setting of HTN/demand ischemia. Unable to r/o NSTEMI type I given her extensive CAD history. Will trend troponin and monitor for symptoms, currently no chest pain. Will start HEPARIN ggt if troponin continues to rise or chest pain worsen. -Trend troponins -Cardiac echo -Cardiology will follow patient, appreciate recommendations -Nitroglycerin as needed for chest pain -Lipid panel -Hemoglobin A1c -TSH level -Morphine for pain - resume home plavix 75mg and ASA 81 mg - Resume home Coreg 25 mg BIDWM - maintain K>4.0 and mag > 2.0 #Hx of CHF She reports a history of CHF, EF unknwon, diagnosed last year. She is on LASIX 20 mg daily. Currently euvolemic without evidence of CHF exacerbation. ? Continue LASIX 20 mg daily ? Pending ECHO #Hypertensive emergency #Primary hypertension Per EMS noted with blood pressure greater than 200 with evidence of end-organ damage poly, and elevated troponin. Patient present with chest pain but denies headaches, dizziness and vision changes. Marked hypertensive and treated with a combination of topical nitrates, IV narcotic analgesics, and diltizem with gradual reduction of blood pressure. She follows-up with Dr. Delacruz who is in the process of adjusting BP meds. - Resume home amlodipine 10 mg p.o. daily - Resume home hydralazine 50 mg p.o. twice daily - Continue labetalol PRN - Continue to monitor - Appreciate recommendations from Nephrology team #Hyperglycemia without ketosis #Nly-iuwnssn-zdrajbvfw type 2 diabetes Chemistries notable for elevated blood sugar of 660 without anion gap. Usually at blood glucose level is well-controlled on metformin and glimepiride. In the ED patient received 8 units IV of insulin regular, glucose improved. A1C 7.6 from 04/2025. - Glucose checks ACHS - Started insulin sliding scale - Follow-up with A1c #Acute kidney injury POLY likely in setting of hypertensive emergency. Patient creatinine 1.5 and GFR 39. Unable to r/o CKD but very likely given chronic HTN and diabetes. - Avoid nephrotoxins -Monitor renal panel -Renally dosed medications - Dr. Delacruz on board, appreciate recommendations. #Normocytic anemia on admission Hg 11.1 and Hct 34.9 , MCV 80. Pt not actively bleeding. Denies hemetamesis and melena - Continue to monitor H&H #Leg cramps Chronic, possibly related to lasix according to patient, but maybe d/t peripheral neuropathy. ? Given GABAPENTIN X1 trial ? Ordered NORA venous doppler Hospital management: Lines: peripheral IV Diet: NPO DVT prophylaxis: HEPARIN SC Disposition: tele hypertensive emergency and NSTEMI work up CODE STATUS: Full code Patient seen and assessed under supervision of attending physician and discuss with senior resident Dr. Morgan PGY-2 Florence Gilmore MD PGY-1, Internal Medicine Please note: this document was transcribed using voice recognition technology; minor inaccuracies may be present. Attending Provider Attestation/Addendum 65-year-old female with coronary artery disease status post 3 stents. She had stenting done in [place] x 2 and 1 at [facility]. 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 She moved to this area back in September. The patient takes blood pressure medications. Her blood pressure is out of control when she presented. She has nitroglycerin patch that relieved her chest pain. She is chest pain-free at the time of my evaluation this morning. Patient will need cardiology evaluation, trend troponins. Repeat EKG as needed for chest pain. I discussed with and supervised the resident physician who took care of this patient. I agree with the assessment and plan as above.
[2025-06-05] MEDS: Magnesium Sulfate 2 GM Ivpb 2 GM/50 ML BAG IV (06:01)
[2025-06-05 06:28] LABS: Troponin I 0.736 ng/mL (0.0-0.045)
--- NOTE | 2025-06-05 07:24 | XR_ITS ---
Examination: Venous duplex lower extremity sonogram, bilateral. Date and time of exam: June 05, 2025 1220 hours INDICATIONS: Bilateral leg cramps 2 years Technique: Multiple sonographic images of the deep venous system have been obtained. B-mode/2-D grayscale imaging of vascular structures and Doppler spectral analysis (waveforms) and color performed Both legs are examined. Findings: Deep venous systems do not demonstrate abnormal echogenicity. All visualized deep veins exhibit compressibility. All visualized deep veins exhibit augmentation. Impression: Negative for deep vein thrombosis
[2025-06-05 08:11] LABS: Anion Gap 13 (7-16); BUN/Creatinine Ratio 17 Ratio (12-20); Blood Urea Nitrogen 20 mg/dL (9-23); Calcium 9.6 mg/dL (8.3-10.6); Carbon Dioxide 26.5 mMol/L (20.0-31.0); Chloride 107 mMol/L (98-107); Creatinine (Component) 1.2 mg/dL (0.6-1.3); Estimated Creatinine Clearance 48.2 mL/min (>60); Glucose 201 mg/dL (74-106); Osmolality,Calculated 299 (275-295); Potassium 4.1 mMol/L (3.4-5.1); Sodium 146 mMol/L (136-145); eGFR 51 See Note
[2025-06-05] MEDS: ASPIRIN EC 81 MG TABEC PO (08:37)
[2025-06-05] MEDS: CLOPIDOGREL BISULFATE 75 MG TABLET PO (08:37)
[2025-06-05] MEDS: HEPARIN SOD INJ 5000 UNIT/ML VIAL SC ×2 (08:40→20:29)
--- NOTE | 2025-06-05 08:56 | ESCONSULT_ITS ---
HPI Data of Consult Consult date: 06/05/25 Requesting Physician: Otoniel Corcoran MD Admitting Provider: Otoniel Corcoran MD Attending Provider: Otoniel Corcoran MD Primary Care Provider: Bibi Delacruz MD Consult Narrative Reason for consult: HTN History of present illness: History of Present illness: 65y/o F with PMH of hypertension, type 2 diabetes mellitus, and coronary artery disease (CAD) status post three stent placements, presented to hospital on 06/05/2025, due to acute chest pain. 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 However, the pain was different from that of her previous IA in 2017, during which she felt more focalized sharp pain with severe difficulty in breathing. This time, she noted the pain was radiating to her upper torso and right side of her neck and chin along with slight discomfort in breathing. Endorses bilateral leg cramping at the time. Denies orthpnea, and paroxysmal nocturnal dyspnea and headache. Patient was admitted for hypertensive emergency and chest pain management. Nephrology was consulted for HTN emergency and POLY ED course: -Initial vitals were BP 199/93, Pulse 102, RR 18, temp 98.1, O2 sat 96% on room air -Labs significant for WBC 12, hemoglobin 11.1, hematocrit 34.9, creatinine 1.5, eGFR 39, glucose 660, alkaline phosphatase 140, trops 0.189 BNP 195, UA showed microalbumin 1576,microalb/cr ration 2388 -Imaging included CXR demonstrated mild cardiomegaly without overt pulmonary edema, infiltrate, or pneumothorax. EKG showed sinus tachycardia, rate of 101, no acute pathological ST segment changes, evidence of previous inferior wall IA -In the ED, patient was marked hypertensive and treated with a combination of topical nitrates, IV morphine, diltiazem 10 mg with gradual reduction of blood pressure. Patient received IV fluids and regular insulin for hyperglycemia Past Medical History: as mention above + asthma Family History: Daughter from ALL, aunt-ovarian cancer, uncle- oropharyngeal cancer Surgical History: Hysterectomy Social History: Denies history of smoking, denies current alcohol use, denies recreational drug use. Patient is , born and raised in [place] [facility]. Used to work in [employer]. Current Medications: Prednisolone 20mg, metformin 500 mg twice daily, clopidogrel 75 daily, famotidine once, glimepiride, furosemide 20 mg twice daily, nitro 0.4, carvedilol 25 mg, hydralazine 50 mg twice daily. Allergies: Sulfa antibiotics/rash 06/05/2025: Labs reviewed and patient examined at the bedside. Patient feels much better after ED treatment. No longer feels chest pain or leg cramps. Continue to monitor for BP and HTN. BP: 143/68, BUN: 18, Cr:1.5, eGFR:39 cc:: cc: Otoniel Corcoran MD Review of Systems Review of Systems Narrative Review of Systems: All 12 systems assessed and the patient denies unless otherwise stated in HPI Exam Vital Signs Temp Pulse Resp BP Pulse Ox O2 Del Method 98.7 F 80 19 178/80 H 95 Room Air 06/05/25 04:06 06/05/25 08:37 06/05/25 05:33 06/05/25 08:37 06/05/25 05:33 06/05/25 05:33 Narrative Exam General: No acute distress, well nourished, AAO x3 Eye: normal conjunctiva, no scleral icterus HENT: Normocephalic, atraumatic, hearing intact to conversation at normal volume, moist oral mucosa Neck: Supple, non-tender, no JVD, no lymphadenopathy Lungs: Non-labored respirations, symmetric chest rise, Clear to auscultate bilaterally, No wheezing, rhonchi, crackles Heart: Peripheral pulses intact bilaterally, Regular Rate and Rhythm. Abdomen: Soft, non-tender, non-distended, no palpable masses Musculoskeletal: Normal range of motion and strength, No cyanosis or edema, No visible joint swelling Skin: Skin is warm, dry, no rashes or lesions. Psychiatric: Cooperative, appropriate mood and affect, Awake and alert, not agitated Neuro: Cranial nerves II-XII grossly intact. Sensations intact to light touch. Results Labs 06/05/25 01:13 06/05/25 05:49 Labs: Short CBC 06/05/25 Range/Units 01:13 WBC 12.0 H (3.6-11.0) Thou/mm3 Hgb 11.1 L (12.0-16.0) g/dL Hct 34.9 L (36.0-46.0) % Plt Count 298 D (140-440) Thou/mm3 BMP 06/05/25 06/05/25 01:13 05:49 Sodium 139 146 H Potassium 4.6 4.1 D Chloride 102 107 Carbon Dioxide 25.5 26.5 BUN 18 20 Creatinine 1.5 H 1.2 Glucose 660 H* 201 H D Calcium 9.4 9.6 Cardiac Enzymes 06/05/25 06/05/25 06/05/25 Range/Units 01:13 03:00 05:49 Troponin I < 0.020 0.189 H* 0.736 H* D (0.0-0.045) ng/mL Liver Function 06/05/25 Range/Units 01:13 Total Bilirubin 0.3 (0.3-1.2) mg/dL AST 19 (0-34) U/L ALT 27 (10-49) U/L Alkaline Phosphatase 140 H (46-116) U/L Albumin 4.1 (3.4-4.8) gm/dL Quality Measures Quality Measures none Medications Home Medications and Allergies Home Medications ?Medication ?Instructions ?Recorded ?Confirmed ?Type amlodipine 10 mg tablet (Norvasc) 10 mg PO QDAY #0 tab s 11/08/15 06/05/25 History ibuprofen 800 mg tablet 800 mg PO Q8HR PRN PAIN #0 t abs 11/08/15 06/05/25 History metformin 500 mg tablet 500 mg PO BIDAC #0 tabs 10/2206/05/25 History (Glucophage) aspirin 81 mg chewable tablet 81 mg PO QDAY 06/05/25 0 06/05/25 History budesonide 160 mcg-glycopyr 9 2 inh inhalation BID 06/05/25 History mcg-formot 4.8 mcg/actuation HFA inhaler (Breztri Aerosphere) carvedilol 12.5 mg tablet 12.5 mg PO BID 06/05/2505/22 History clopidogrel 75 mg tablet 75 mg PO DAILY 06/05/2505/22 History famotidine 20 mg tablet 20 mg PO DAILY 06/05/2505/22 History glimepiride 2 mg tablet 2 mg PO DAILY 06/05/2506/05 History hydralazine 50 mg tablet 50 mg PO BID 06/05/25 History levocetirizine 5 mg tablet 5 mg PO DAILY 06/05/2505/22 History nitroglycerin 0.4 mg sublingual 0.4 mg buccal PRN 05/2206/05/25 History tablet (Nitrostat) prednisone 20 mg tablet 20 mg PO DAILY 06/05/2505/22 History Allergies Allergy/AdvReac Type Severity Reaction Status Date / Time Sulfa (Sulfonamide AdvReac Mild Rash Verified 03/20/25 11:52 Antibiotics) Visit Medications Acetaminophen (Acetaminophen 325 Mg Tablet) 650 mg PO Q6HR PRN PRN Reason: FEVER >101 Stop: 07/05/25 05:37 Amlodipine Besylate (Amlodipine Besylate 5 Mg Tablet) 10 mg PO QDAY [facility] Stop: 07/05/25 08:59 Last Admin: 06/05/25 08:36 Dose: Not Given Aspirin (Aspirin Ec 81 Mg Tabec) 81 mg PO QDAY [facility] Stop: 07/05/25 08:59 Last Admin: 06/05/25 08:37 Dose: 81 mg Carvedilol (Carvedilol 12.5 Mg Tablet) 25 mg PO BIDWM [facility] Stop: 07/05/25 07:59 Last Admin: 06/05/25 08:36 Dose: 25 mg Clopidogrel Bisulfate (Clopidogrel Bisulfate 75 Mg Tablet) 75 mg PO QDAY [facility] Stop: 07/05/25 08:59 Last Admin: 06/05/25 08:37 Dose: 75 mg Dextrose (Dextrose 50%-Water Inj 50 Ml Syringe) 25 ml IV Q15MIN PRN PRN Reason: BG 50-70 responsive npo pt Stop: 07/05/25 05:25 Dextrose (Dextrose 50%-Water Inj 50 Ml Syringe) 50 ml IV Q15MIN PRN PRN Reason: BG <50 OR BG <70 & pt unresponsive Stop: 07/05/25 05:25 Furosemide (Furosemide 20 Mg Tablet) 20 mg PO QAM [facility] Stop: 07/05/25 08:59 Last Admin: 06/05/25 08:34 Dose: Not Given Glucagon (Glucagon Inj 1 Mg Vial) 1 mg IM Q15MIN PRN PRN Reason: BG <70, and no IV access Heparin Sodium (Porcine) (Heparin Sod Inj 5000 Unit/Ml Vial) 5,000 unit SC BID [facility] Stop: 06/19/25 08:59 Last Admin: 06/05/25 08:40 Dose: 5,000 unit Hydralazine HCl (Hydralazine Hcl 25 Mg Tablet) 50 mg PO BID [facility] Stop: 07/05/25 08:59 Last Admin: 06/05/25 08:37 Dose: 50 mg Insulin Human Lispro (Insulin Lispro (Admelog) 1 Unit/0.01 Ml Unit) 0 unit SC ACHS [facility]; Protocol Stop: 07/05/25 07:29 Last Admin: 06/05/25 08:30 Dose: Not Given Morphine Sulfate (Morphine Sulf Inj 4 Mg/Ml Vial) 2 mg IVP Q4HR PRN PRN Reason: PAIN 4-6 Morphine Sulfate (Morphine Sulf Inj 4 Mg/Ml Vial) 4 mg IVP Q6HR PRN PRN Reason: PAIN 7-10 Stop: 06/10/25 05:37 Nitroglycerin (Nitroglycerin 0.4 Mg Subl Btl #25) 0.4 mg SL Q5MIN PRN PRN Reason: CHEST PAIN Ondansetron HCl (Ondansetron Inj 2 Mg/Ml Inj 2 Ml) 4 mg IVP Q6H PRN; Protocol PRN Reason: NAUSEA OR VOMITING Stop: 07/05/25 05:21 Discontinued Medications Amlodipine Besylate (Amlodipine Besylate 5 Mg Tablet) 10 mg PO X1 ONE Stop: 06/05/25 04:28 Last Admin: 06/05/25 04:59 Dose: 10 mg Diltiazem HCl (Diltiazem Inj 5 Mg/Ml Vial 5 Ml) 10 mg IV X1 ONE Stop: 06/05/25 00:32 Last Admin: 06/05/25 00:52 Dose: 10 mg Diltiazem HCl (Diltiazem Inj 5 Mg/Ml Vial 5 Ml) 10 mg IV X1 ONE Stop: 06/05/25 04:20 Last Admin: 06/05/25 04:31 Dose: Not Given Gabapentin (Gabapentin 300 Mg Capsule) 300 mg PO X1 ONE Stop: 06/05/25 05:24 Last Admin: 06/05/25 05:53 Dose: Not Given Sodium Chloride (Ns) 250 mls @ 250 mls/hr IV .Q1H ONE Stop: 06/05/25 01:39 Last Infusion: 06/05/25 01:54 Dose: Infused Magnesium Sulfate (Magnesium Sulfate Ivpb) 2 gm in 50 mls @ 25 mls/hr IV X1 ONE Stop: 06/05/25 07:53 Last Admin: 06/05/25 06:01 Dose: 25 mls/hr Insulin Human Regular (Insulin Hum Regular 1 Unit/0.01 Ml (Per Unit)) 8 unit IV X1 ONE Stop: 06/05/25 03:15 Last Admin: 06/05/25 03:51 Dose: 8 unit Labetalol HCl (Labetalol Inj 5 Mg/Ml Vial 20 Ml) 10 mg IVP X1 ONE Stop: 06/05/25 07:09 Last Admin: 06/05/25 08:26 Dose: Not Given Morphine Sulfate (Morphine Sulf Inj 4 Mg/Ml Vial) 4 mg IVP X1 ONE Stop: 06/05/25 00:32 Last Admin: 06/05/25 00:59 Dose: 4 mg Nitroglycerin (Nitroglycerin Oint 2% 1 Inch Packet) 2 inch TOP X1 ONE Stop: 06/05/25 00:20 Last Admin: 06/05/25 00:34 Dose: 2 inch Prochlorperazine Edisylate (Prochlorperazine Inj 5 Mg/Ml Vial 2 Ml) 5 mg IV X1 ONE; Protocol Stop: 06/05/25 00:32 Last Admin: 06/05/25 00:55 Dose: 5 mg Assessment & Plan Plan 65y/o F with PMH of hypertension, type 2 diabetes mellitus, and coronary artery disease (CAD) status post three stent placements, presented to hospital on 06/05/2025, due to acute chest pain. Patient was admitted for hypertensive emergency and chest pain management. Nephrology was consulted for HTN emergency and POLY. #POLY #2/2 HTN emergency -Upon admission, BUN: 18, Cr:1.5, eGFR:39, BP 199/93, Pulse 102, RR 18 -POLY could be secondary to HTN emergency -Current BP:143/68 -CXR: Mild enlargement cardiac contour, Mild to moderate vascular congestion. Plan: -Continue to monitor for renal improvment -Avoid nephrotoxins -Renally dose medication -Continue amlodipine 10mg PO qd, Coreg 25mg PO bid. #Elevated troponin #NSTEMI I vs NSTEMI II #CAD multivessel disease #S/P 2 stents 2016 and 2023 #Hx of CHF #Hyperglycemia without ketosis #[id number] type 2 diabetes #Normocytic anemia #Leg cramps -Management per Primary Hospitalist team Thank you for allowing us to participate in the care of your patient. Assessment and plan discussed with my attending physician Dr. Nubia Sy (PGY-1)- Internal medicine resident Attending Provider Attestation/Addendum Patient seen and examined with resident physician Dr. Sy. Note reviewed, agree with findings and recommendations. patient currently seen in telemetry. History of coronary artery disease with multivessel disease and stents. Came with hypertensive emergency and POLY. Agree with current management of bringing the blood pressures down not quite sure which triggered the blood pressure. DC ibuprofen. Hold off on metformin. Renal ultrasound/renal Doppler ordered. Thank you Dr. Guadalupe for allowing me to participate in the care of Ms. Dumont
[2025-06-05] MEDS: FAMOTIDINE INJ 10 MG/ML VIAL 2 ML 20 MG IVP ×2 (10:25→20:29)
[2025-06-05 11:39] LABS: Troponin I 0.776 ng/mL (0.0-0.045)
[2025-06-05 11:44] LABS: Glucose Estimated Average 177 mg/dL (80-131); Hemoglobin A1C 7.8 % Hgb (4.8-6.0)
--- NOTE | 2025-06-05 13:19 | ESPR_ITS ---
<Statement entered by Blayne Garrett MD - 06/05/25 21:18> Overnight admission. Seen and examined at bedside and patient resting comfortably in bed. Denies any chest discomfort, shortness of breath, palpitations, lightheadedness. States that she has recently changed her blood pressure medications after changing her PCP to Dr. Delacruz. At this time we will continue amlodipine, losartan, and Coreg. Cardiology consulted and appreciate recommendations. Troponins peaked at 0.776, will follow-up echo results and if blood pressure remains controlled, anticipate discharge within next 24 to 48 hours. ----- Note reviewed and agree with care plan as documented. Please refer to the note below for further details. Plan discussed with attending physician Dr. Louisa Garrett MD PGY-2 Internal Medicine Documentation for date of: 06/05/25 Subjective Subjective Interval history: Patient was seen and examined at bedside. No acute events took place overnight. Patient states that she had been having intermittent chest pain on and off for the previous 4 days. However last night persistent chest pain which radiated to right neck, face, and right arm prompted her ER visit. She also complains of bilateral lower extremity cramping as early as 3 AM in the morning, which wakes her up from sleep, and goes away a few hours later when she gets up and walks it out . Patient follows Dr Delacruz outpatient who has worked her up for rheumatoid arthritis. She denies any chest pain, shortness of breath, lightheadedness dizziness, or swelling in the legs. Related to her hypertension, she has had recent headaches, ringing in her ears, which she attributes to allergy. Denies blurry vision or abnormal taste. Exam Vital Signs Temp Pulse Resp BP Pulse Ox O2 Del Method 96.9 F 76 24 H 155/66 H 95 Room Air 06/05/25 12:00 06/05/25 12:00 06/05/25 12:00 06/05/25 12:00 06/05/25 12:06/05/25 12:00 Narrative Exam General: Sitting comfortably in bed ,alert, no acute distress.Conversational and non-toxic appearing. Skin: Warm, dry, intact. No rash or ecchymoses. Head: Normocephalic, atraumatic. Eye: Normal conjunctiva, PERRL. Throat: Oral mucosa moist. No obvious lesions in oropharynx. Cardiovascular: Regular rate and rhythm, 2/6 systolic murmur, +S1/S2. Respiratory: Lungs are clear to auscultation, respirations unlabored, no crackles, no wheezing. Gastrointestinal: Soft, nontender, non-distended. No guarding or rebound tenderness. Extremities: No edema, no cyanosis, no clubbing. Neuro: Alert and oriented x3.No focal deficits observed. Conversant, moving all extremities. No overt cerebellar signs/incoordination. Psychiatric: Cooperative, appropriate affect Objective Labs 06/06/25 04:10 06/06/25 04:10 Labs: Laboratory Results - last 24 hr 06/05/25 06/05/25 06/05/25 01:13 03:00 05:49 WBC 12.0 H RBC 4.39 Hgb 11.1 L Hct 34.9 L MCV 80 MCH 25.3 MCHC 31.8 RDW Std Deviation 40.7 Plt Count 298 D Neut % (Auto) 87 H Lymph % (Auto) 8 L Nash % (Auto) 4 Eos % (Auto) 0 Baso % (Auto) 0 Neut # (Auto) 10.5 H Lymph # (Auto) 1.0 Nash # (Auto) 0.5 Eos # (Auto) 0.0 Baso # (Auto) 0.0 Immature Gran # (Auto) 0.07 H Absolute Nucleated RBC 0.00 Immature Gran % 1 H Nucleated RBC % 0 Sodium 139 146 H Potassium 4.6 4.1 D Chloride 102 107 Carbon Dioxide 25.5 26.5 Anion Gap 12 13 BUN 18 20 Creatinine 1.5 H 1.2 Estim Creat Clear Calc 38.5 L 48.2 L eGFR 39 L 51 L BUN/Creatinine Ratio 12 17 Glucose 660 H* [address] Glu mg/dL 177 H Hemoglobin A1c 7.8 H Calculated Osmolality 310 H 299 H Calcium 9.4 9.6 Corrected Calcium 9.4 Magnesium 1.8 Total Bilirubin 0.3 AST 19 ALT 27 Alkaline Phosphatase 140 H Troponin I < 0.020 0.189 H* 0.736 H* D B-Natriuretic Peptide 195 H Total Protein 6.1 Albumin 4.1 Globulin 2.0 L Albumin/Globulin Ratio 2.1 06/05/25 11:05 WBC RBC Hgb Hct MCV MCH MCHC RDW Std Deviation Plt Count Neut % (Auto) Lymph % (Auto) Nash % (Auto) Eos % (Auto) Baso % (Auto) Neut # (Auto) Lymph # (Auto) Nash # (Auto) Eos # (Auto) Baso # (Auto) Immature Gran # (Auto) Absolute Nucleated RBC Immature Gran % Nucleated RBC % Sodium Potassium Chloride Carbon Dioxide Anion Gap BUN Creatinine Estim Creat Clear Calc eGFR BUN/Creatinine Ratio Glucose Estimated Ave Glu mg/dL Hemoglobin A1c Calculated Osmolality Calcium Corrected Calcium Magnesium Total Bilirubin AST ALT Alkaline Phosphatase Troponin I 0.776 H* B-Natriuretic Peptide Total Protein Albumin Globulin Albumin/Globulin Ratio Quality Measures Quality Measures none Assessment & Plan Assessment Current Active Medications: Generic Name Dose Route Start Last Admin Trade Name Freq PRN Reason Stop Dose Admin Acetaminophen 1,000 mg 06/05/25 09:48 Acetaminophen 325 Mg Tablet PO 07/05/25 05:37 Q6HR PRN Fever >99.9 Amlodipine Besylate 10 mg 06/05/25 21:00 Amlodipine Besylate 5 Mg Tablet PO 07/05/25 20:59 HS DELISA Aspirin 81 mg 06/05/25 09:00 06/05/25 08:37 Aspirin Ec 81 Mg Tabec PO 07/05/25 08:59 81 mg QDAY DELISA Administration Carvedilol 25 mg 06/05/25 08:00 06/05/25 08:36 Carvedilol 12.5 Mg Tablet PO 07/05/25 07:59 25 mg BIDWM DELISA Administration Clopidogrel Bisulfate 75 mg 06/05/25 09:00 06/05/25 08:37 Clopidogrel Bisulfate 75 Mg Tablet PO 07/05/25 08:59 75 mg QDAY DELISA Administration Dextrose 50 ml 06/05/25 05:26 Dextrose 50%-Water Inj 50 Ml Syringe IV 07/05/25 05:25 Q15MIN PRN BG <50 OR BG <70 & pt unresponsive Famotidine 20 mg 06/05/25 09:15 06/05/25 10:25 Famotidine Inj 10 Mg/Ml Vial 2 Ml IVP 07/05/25 09:14 20 mg BID DELISA Administration Furosemide 20 mg 06/05/25 09:00 06/05/25 08:34 Furosemide 20 Mg Tablet PO 07/05/25 08:59 Not Given QAM DELISA Glucagon 1 mg 06/05/25 05:26 Glucagon Inj 1 Mg Vial IM Q15MIN PRN BG <70, and no IV access Heparin Sodium (Porcine) 5,000 unit 06/05/25 09:00 06/05/25 08:40 Heparin Sod Inj 5000 Unit/Ml Vial SC 06/19/25 08:59 5,000 unit BID [facility] Administration Insulin Human Lispro 0 unit 06/05/25 07:30 06/05/25 11:53 Insulin Lispro (Admelog) 1 Unit/0.01 Ml Unit SC 07/05/25 07:29 Not Given ACHS [facility] Protocol Losartan Potassium 25 mg 06/06/25 09:00 Losartan Potassium 25 Mg Tablet PO 07/06/25 08:59 QDAY [facility] Morphine Sulfate 2 mg 06/05/25 05:38 Morphine Sulf Inj 4 Mg/Ml Vial IVP Q4HR PRN PAIN 4-6 Morphine Sulfate 4 mg 06/05/25 05:38 Morphine Sulf Inj 4 Mg/Ml Vial IVP 06/10/25 05:37 Q6HR PRN PAIN 7-10 Nitroglycerin 0.4 mg 06/05/25 05:32 Nitroglycerin 0.4 Mg Subl Btl #25 SL Q5MIN PRN CHEST PAIN Ondansetron HCl 4 mg 06/05/25 05:22 Ondansetron Inj 2 Mg/Ml Inj 2 Ml IVP 07/05/25 05:21 Q6H PRN NAUSEA OR VOMITING Protocol Plan Patient is a 65-year-old female with a medical history of hypertension, type 2 diabetes mellitus, and coronary artery disease (CAD) status post three stent placements. She presented to the emergency department on 06/05/2025 with a chief complaint of acute chest pain. For hypertensive urgency and chest pain workup and management. Furthermore, patient reported recent morning leg cramps, stopped Lasix and started Bumex 1 mg. #Elevated troponin #NSTEMI likely type II #CAD multivessel disease #S/P 2 stents 2016 and 2023 On admission: Troponin 0.189. EKG EKG showed sinus tachycardia, rate of 101, no acute pathological ST segment changes, evidence of previous inferior wall KS. Patient acute pressure-like chest pain radiating to right arm and neck. Hx of 3 stents placement. Reports compliance with PLAVIX/ASA. Troponins 0.020, 0.189, 0.736, (peak) 0.776, 0.737. She likely had NSTEMI type II in setting of HTN/demand ischemia. BNP 135, elevated from 65 on 02/2025. Although patient does not have leg edema or crackles on lung auscultation, consider possibility of ADHF and fluid overload in GI tract. -Cardiac echo -Cardiology will follow patient, appreciate recommendations -No indication for heparin drip at this time as troponins have peaked and NSTEMI likely to be type II -Started atorvastatin 10mg HS and ordered lipid panel for dose adjustment. -Nitroglycerin as needed for chest pain -Lipid panel -Hemoglobin A1c -TSH level -Morphine for pain - resumed home plavix 75mg and ASA 81 mg - Resumed home Coreg 25 mg BIDWM - maintain K>4.0 and mag > 2.0 #Hx of CHF She reports a history of CHF, EF unknwon, diagnosed last year. She is on LASIX 20 mg daily. Currently euvolemic without evidence of CHF exacerbation. Due to side effect of severe leg cramping on Lasix, consider replacing with Bumex 1 mg daily - Bumex 1 mg x 1 - Lasix PO 20mg QAM, hold? ?Strict I&Os, daily weights, 1.5L fluid restriction ? Pending ECHO #Hypertensive emergency #Primary hypertension Per EMS noted with blood pressure greater than 200 with evidence of end-organ damage poly, and elevated troponin. Patient present with chest pain but denies headaches, dizziness and vision changes. Marked hypertensive and treated with a combination of topical nitrates, IV narcotic analgesics, and diltizem with gradual reduction of blood pressure. She follows-up with Dr. Delacruz who is in the process of adjusting BP meds. - Resumed home amlodipine 10 mg p.o. daily - Started Losartan PO 25mg Qday - Resume home hydralazine 50 mg p.o. twice daily, if necessary - Continue labetalol PRN - Continue to monitor - Appreciate recommendations from Nephrology team #Hyperglycemia without ketosis #Shj-[id number] type 2 diabetes Chemistries notable for elevated blood sugar of 660 without anion gap. Usually at blood glucose level is well-controlled on metformin and glimepiride. In the ED patient received 8 units IV of insulin regular, glucose improved. A1C 7.6 from 04/2025. - Glucose checks ACHS - Started insulin sliding scale - Follow-up with A1c #Acute kidney injury POLY likely in setting of hypertensive emergency. Patient creatinine 1.5 and GFR 39. Unable to r/o CKD but very likely given chronic HTN and diabetes. - Avoid nephrotoxins -Monitor renal panel -Renally dosed medications - Dr. Delacruz on board, appreciate recommendations. #Normocytic anemia on admission Hg 11.1 and Hct 34.9 , MCV 80. Pt not actively bleeding. Denies hemetamesis and melena - Continue to monitor H&H #Leg cramps Chronic, possibly related to lasix according to patient, but maybe d/t peripheral neuropathy. ? Given GABAPENTIN X1 trial ? Ordered NORA venous doppler Hospital management: Lines: peripheral IV Diet: Routine DVT prophylaxis: HEPARIN SC Disposition: Will follow-up echo results and if BP remains controlled, anticipate discharge within the next 24 to 48 hours CODE STATUS: Full code This case was discussed with my attending physician, Dr. Jasso, and senior resident, Dr Tami Little. Anabell Campos DO PGY I Attending Provider Attestation/Addendum I, Talita Jasso DO, attest that I was physically present for the miller portions of the service and evaluated the patient with the resident and I reviewed and discussed the case with the resident and agree with the resident's findings and plans of care as documented above Patient seen and evaluated this Am. Patient states she had some chest pain intermittently at home. However, she was brought to ED due to worsening shortness of breath. Patient states that she was recently taking prednisone for the past 6 days, which is the likely cause of her elevated BG. She currently states she is feeling improved. No peripheral edema noted. Lungs are CTAB/L. mild to mod vascular congestion seen on CXR. Case dsicussed with cardiology, will give bumex 1mg IV x1. Patient states she does not take lasix at home due to leg cramps. Will monitor electrolytes closely. Pending echo. Patient may need sleep study outpatient due to concern for TWILA
--- NOTE | 2025-06-05 14:21 | PC.SS ---
Patient is alert/oriented. Patient was able to verify demographics. Patient was admitted for chest pain. Patient resides with . Patient is independent with ADL's. No DME. Pharmacy: [facility]. PCP: Dr. Delacruz. Last appt was last week. Patient states her pcp was in the process of referring her to a [facility]. Discharge plan is to return home. alt medical decision maker: , Devang Dumont, transportation: family
--- NOTE | 2025-06-05 16:30 | PD.RESCONSUL ---
HPI Data of Consult Requesting Physician: Talita Jasso DO Admitting Provider: Otoniel Corcoran MD Attending Provider: Talita Jasso DO Primary Care Provider: Bibi Delacruz MD Consult Narrative Reason for consult: NSTEMI History of present illness: Ana Dumont 65F pmhx significant for HTN, NIDDM2, CAD s/p DESx3 on Plavix, asthma and GERD who presents with chest pain. Patient reports central 5/10 chest pressure radiating to the right jaw and right arm lasting 24 hours with clammy hot flashes while she was just sitting watching television. Denies for shortness of breath during this episode compared to prior [place] in 2017 which she mostly felt short of breath. Chest pain did not resolve on its own after 24 hours which prompted current ED visit. Chest pain not dependent on food consumption, inspiration or position. Patient reports that she does have nitroglycerin however did not take it at the time and is hesitant to take it. Patient also reports that in the interim, she has been undergoing blood pressure medication changes with her primary Dr. Delacruz. Endorses occasional leg swelling, resolved by leg elevation. Patient denies palpitations, lightheadedness or dizziness, nausea vomiting. Patient reports orthopnea, having to sleep with multiple pillows. Denies PND, leg swelling or recent illness. PMHx: As above Surgical Hx: Remote hysterectomy FHx: Daughter from leukemia, denies any other familial cardiac history or sudden under the age of 50 Social Hx: Remote cigarette use in teens, denies alcohol use or recreational/illicit drug use Allergies: Sulfa causing rash Medications: Per med rec In ED, BP 199/93, HR 102, RR 19, afebrile, 96% RA, WBC 12, Hgb 11.1, K 4.6, bicarb 25.5, BUN 18, Cr 1.5, eGFR 39, glucose 660, a1c 7.8, Mg 1.8, alk phos 140, trops initially neg however 0.189->0.736, 0.776, BNP 195. In ED, given nitro, ASA, morphine, and diltiazem. EKG showed sinus rhythm rate 86. Cardiology consulted for chest pain workup. cc:: cc: Talita Jasso DO Exam Vital Signs Temp Pulse Resp BP Pulse Ox O2 Del Method 96.9 F 77 24 H 155/66 H 96 Room Air 06/05/25 16:00 06/05/25 16:00 06/05/25 16:00 06/05/25 16:00 06/05/25 16:00 06/05/25 16:00 Narrative Exam GENERAL: AOx3, no acute distress HEENT: NC/AT, mucous membranes moist, bilateral sclera anicteric CARDIOVASCULAR: regular rate and rhythm, S1/S2 present, 2/6 systolic murmur PULMONARY: clear to auscultation bilaterally, no rales/rhonchi/wheezes ABDOMINAL: soft, non-tender, non-distended, no rebound/guarding, bowel sounds present EXTREMITIES: no peripheral edema SKIN: warm and dry, intact, no rashes NEURO: CN II-XII grossly intact, no focal deficits, alert, following commands Results Labs 06/06/25 04:10 06/06/25 04:10 Labs: Short CBC 06/05/25 Range/Units 01:13 WBC 12.0 H (3.6-11.0) Thou/mm3 Hgb 11.1 L (12.0-16.0) g/dL Hct 34.9 L (36.0-46.0) % Plt Count 298 D (140-440) Thou/mm3 BMP 06/05/25 06/05/25 01:13 05:49 Sodium 139 146 H Potassium 4.6 4.1 D Chloride 102 107 Carbon Dioxide 25.5 26.5 BUN 18 20 Creatinine 1.5 H 1.2 Glucose 660 H* 201 H D Calcium 9.4 9.6 Cardiac Enzymes 06/05/25 06/05/25 06/05/25 Range/Units 01:13 03:00 05:49 Troponin I < 0.020 0.189 H* 0.736 H* D (0.0-0.045) ng/mL 06/05/25 Range/Units 11:05 Troponin I 0.776 H* (0.0-0.045) ng/mL Liver Function 06/05/25 Range/Units 01:13 Total Bilirubin 0.3 (0.3-1.2) mg/dL AST 19 (0-34) U/L ALT 27 (10-49) U/L Alkaline Phosphatase 140 H (46-116) U/L Albumin 4.1 (3.4-4.8) gm/dL Quality Measures Quality Measures none Medications Home Medications and Allergies Home Medications ?Medication ?Instructions ?Recorded ?Confirmed ?Type amlodipine 10 mg tablet (Norvasc) 10 mg PO QDAY #0 tabs 11/08/15 06/05/25 History metformin 500 mg tablet 500 mg PO BIDAC #0 tabs 11/08/15 06/05/25 History (Glucophage) aspirin 81 mg chewable tablet 81 mg PO QDAY 06/05/25 06/05/25 History budesonide 160 mcg-glycopyr 9 2 inh inhalation BID 06/05/25 06/05/25 History mcg-formot 4.8 mcg/actuation HFA inhaler (Breztri Aerosphere) clopidogrel 75 mg tablet 75 mg PO DAILY 06/05/25 06/05/25 History famotidine 20 mg tablet 20 mg PO DAILY 06/05/25 06/05/25 History levocetirizine 5 mg tablet 5 mg PO DAILY 06/05/25 06/05/25 History nitroglycerin 0.4 mg sublingual 0.4 mg buccal PRN 06/05/25 06/05/25 History tablet (Nitrostat) Allergies Allergy/AdvReac Type Severity Reaction Status Date / Time Sulfa (Sulfonamide AdvReac Mild Rash Verified 03/20/25 11:52 Antibiotics) Visit Medications Acetaminophen (Acetaminophen 325 Mg Tablet) 1,000 mg PO Q6HR PRN PRN Reason: Fever >99.9 Stop: 07/05/25 05:37 Amlodipine Besylate (Amlodipine Besylate 5 Mg Tablet) 10 mg PO HS [facility] Stop: 07/05/25 20:59 Aspirin (Aspirin Ec 81 Mg Tabec) 81 mg PO QDAY [facility] Stop: 07/05/25 08:59 Last Admin: 06/05/25 08:37 Dose: 81 mg Carvedilol (Carvedilol 12.5 Mg Tablet) 25 mg PO BIDWM [facility] Stop: 07/05/25 07:59 Last Admin: 06/05/25 08:36 Dose: 25 mg Clopidogrel Bisulfate (Clopidogrel Bisulfate 75 Mg Tablet) 75 mg PO QDAY [facility] Stop: 07/05/25 08:59 Last Admin: 06/05/25 08:37 Dose: 75 mg Dextrose (Dextrose 50%-Water Inj 50 Ml Syringe) 50 ml IV Q15MIN PRN PRN Reason: BG <50 OR BG <70 & pt unresponsive Stop: 07/05/25 05:25 Famotidine (Famotidine Inj 10 Mg/Ml Vial 2 Ml) 20 mg IVP BID [facility] Stop: 07/05/25 09:14 Last Admin: 06/05/25 10:25 Dose: 20 mg Furosemide (Furosemide 20 Mg Tablet) 20 mg PO QAM [facility] Stop: 07/05/25 08:59 Last Admin: 06/05/25 08:34 Dose: Not Given Glucagon (Glucagon Inj 1 Mg Vial) 1 mg IM Q15MIN PRN PRN Reason: BG <70, and no IV access Heparin Sodium (Porcine) (Heparin Sod Inj 5000 Unit/Ml Vial) 5,000 unit SC BID [facility] Stop: 06/19/25 08:59 Last Admin: 06/05/25 08:40 Dose: 5,000 unit Insulin Human Lispro (Insulin Lispro (Admelog) 1 Unit/0.01 Ml Unit) 0 unit SC ACHS [facility]; Protocol Stop: 07/05/25 07:29 Last Admin: 06/05/25 11:53 Dose: Not Given Losartan Potassium (Losartan Potassium 25 Mg Tablet) 25 mg PO QDAY [facility] Stop: 07/06/25 08:59 Morphine Sulfate (Morphine Sulf Inj 4 Mg/Ml Vial) 2 mg IVP Q4HR PRN PRN Reason: PAIN 4-6 Morphine Sulfate (Morphine Sulf Inj 4 Mg/Ml Vial) 4 mg IVP Q6HR PRN PRN Reason: PAIN 7-10 Stop: 06/10/25 05:37 Nitroglycerin (Nitroglycerin 0.4 Mg Subl Btl #25) 0.4 mg SL Q5MIN PRN PRN Reason: CHEST PAIN Ondansetron HCl (Ondansetron Inj 2 Mg/Ml Inj 2 Ml) 4 mg IVP Q6H PRN; Protocol PRN Reason: NAUSEA OR VOMITING Stop: 07/05/25 05:21 Discontinued Medications Acetaminophen (Acetaminophen 325 Mg Tablet) 650 mg PO Q6HR PRN PRN Reason: FEVER >101 Stop: 07/05/25 05:37 Amlodipine Besylate (Amlodipine Besylate 5 Mg Tablet) 10 mg PO X1 ONE Stop: 06/05/25 04:28 Last Admin: 06/05/25 04:59 Dose: 10 mg Amlodipine Besylate (Amlodipine Besylate 5 Mg Tablet) 10 mg PO QDAY [facility] Stop: 07/05/25 08:59 Last Admin: 06/05/25 08:36 Dose: Not Given Dextrose (Dextrose 50%-Water Inj 50 Ml Syringe) 25 ml IV Q15MIN PRN PRN Reason: BG 50-70 responsive npo pt Stop: 07/05/25 05:25 Diltiazem HCl (Diltiazem Inj 5 Mg/Ml Vial 5 Ml) 10 mg IV X1 ONE Stop: 06/05/25 00:32 Last Admin: 06/05/25 00:52 Dose: 10 mg Diltiazem HCl (Diltiazem Inj 5 Mg/Ml Vial 5 Ml) 10 mg IV X1 ONE Stop: 06/05/25 04:20 Last Admin: 06/05/25 04:31 Dose: Not Given Gabapentin (Gabapentin 300 Mg Capsule) 300 mg PO X1 ONE Stop: 06/05/25 05:24 Last Admin: 06/05/25 05:53 Dose: Not Given Hydralazine HCl (Hydralazine Hcl 25 Mg Tablet) 50 mg PO BID [facility] Stop: 07/05/25 08:59 Last Admin: 06/05/25 08:37 Dose: 50 mg Sodium Chloride (Ns) 250 mls @ 250 mls/hr IV .Q1H ONE Stop: 06/05/25 01:39 Last Infusion: 06/05/25 01:54 Dose: Infused Magnesium Sulfate (Magnesium Sulfate Ivpb) 2 gm in 50 mls @ 25 mls/hr IV X1 ONE Stop: 06/05/25 07:53 Last Admin: 06/05/25 06:01 Dose: 25 mls/hr Insulin Human Regular (Insulin Hum Regular 1 Unit/0.01 Ml (Per Unit)) 8 unit IV X1 ONE Stop: 06/05/25 03:15 Last Admin: 06/05/25 03:51 Dose: 8 unit Labetalol HCl (Labetalol Inj 5 Mg/Ml Vial 20 Ml) 10 mg IVP X1 ONE Stop: 06/05/25 07:09 Last Admin: 06/05/25 08:26 Dose: Not Given Morphine Sulfate (Morphine Sulf Inj 4 Mg/Ml Vial) 4 mg IVP X1 ONE Stop: 06/05/25 00:32 Last Admin: 06/05/25 00:59 Dose: 4 mg Nitroglycerin (Nitroglycerin Oint 2% 1 Inch Packet) 2 inch TOP X1 ONE Stop: 06/05/25 00:20 Last Admin: 06/05/25 00:34 Dose: 2 inch Prochlorperazine Edisylate (Prochlorperazine Inj 5 Mg/Ml Vial 2 Ml) 5 mg IV X1 ONE; Protocol Stop: 06/05/25 00:32 Last Admin: 06/05/25 00:55 Dose: 5 mg Assessment & Plan Plan Ana Dumont 65F pmhx significant for HTN, NIDDM2, CAD s/p DESx3 on Plavix, asthma and GERD who presents with chest pain, admitted for NSTEMI. Cardiology consulted for NSTEMI workup. #Hypertensive emergency #NSTEMI likely type II #CHF, per history #Essential HTN Patient was admitted for hypertensive emergency of blood pressure 199/93 with troponins elevated <0.020 ->0.189->0.736->0.776. BNP 135. Per patient, she was undergoing hypertension medication changes. Patient reports 5 out of 10 chest pressure rating to the right jaw and right arm with associated feelings of clamminess while she was seated watching television. Patient did not take nitroglycerin at that time. Patient reports history of CHF but does not remember EF. EKG shows sinus rhythm with rate [address] elevation. CXR shows mild enlargement cardiac contour, mild to moderate vascular congestion. NSTEMI likely type II as troponins have plateaued. Etiology includes CHF exacerbation with elevated BNP from 65 in 02/2025 to 135 currently furthermore patient is also obese which underestimates BNP versus hypertensive emergency causing elevated troponins vs multifactorial with fluid accumulation influencing hypertension. Although patient is not overtly fluid overloaded with no leg edema or crackles on lung auscultation, possible fluid accumulation in gut. Plan: - BP management: amlodipine 10 mg QD, losartan 25 mg QD, and carvedilol 25 mg BID - Due to side effect of severe leg cramping on Lasix, start Bumex 1 mg x 1 - Strict I&Os, daily weights, 1.5L fluid restriction - F/u PM troponin, echocardiogram - No indication for heparin drip at this time as troponins have plateaued and NSTEMI likely type II - CTM vitals - Keep K>4 and Mg>2 #CAD s/p DESx3 (2016, 2023) Per history. Patient reports receiving 2 stents in 2016 and [address] Meneses, family believes. Is adherent to Plavix and ASA. NSTEMI less likely type I as troponins have plateaued. Plan: - Recommend to continue Plavix and ASA - Reommend to start statin given history of CAD and patient is not taking statin at home #NIDDM2 Patient's last A1c on 05/16/2025 is 7.6. Home medication includes glimepiride 2 mg daily. Plan: - SSI - Management per primary team #Hyperglycemia without ketosis #[id number] type 2 diabetes #Acute kidney injury #Normocytic anemia #Leg cramps Plan: - Management per primary team Plan of care discussed with attending Dr. Soares shelf filler. Lilli Little DO PGY-1 Internal Medicine Attending Provider Attestation/Addendum I have personally seen and examined the patient separately on the above date of service and discussed the plan of care with the resident. I reviewed the resident Dr. Lilli Little consultation progress note and agree with the resident findings and plan in the note above and have also edited the documentation to reflect my findings and plan. A 65-year-old female with a history of CAD status post PCI with 3 AURELIA stents on Plavix, essential hypertension, type diabetes mellitus, asthma, GERD presented to the emergency department for further evaluation of some chest pain chest pressure radiating to the right jaw as well as right arm mostly hemoglobin levels.. On presentation to the emergency department patient was found to have elevated blood pressure of 189/93 mmHg and heart rate of 100 to 2 bpm afebrile. Labs showed BUN of 18 creatinine of 1.5, WBC of 12 hemoglobin of 11. A1c 7.8. Troponins initially were negative and the value increased to 0.7 and then down trended. NT-proBNP was 195. EKG showed normal sinus rhythm without any acute ST-T changes suggestive of ischemia. Old Q waves in inferior leads noted and unchanged from before. Cardiology was consulted for further evaluation given the elevated blood pressure and hypertensive emergency along with elevated troponins. Patient was found to have hypertensive urgency and troponin elevation mostly secondary to NSTEMI type II. Denies any Chest pain or chest pressure since the improvement in the blood pressure. Recommended to check an echocardiogram to rule out any regional wall motion abnormalities and evaluate LV function hypertension as well as diastolic function. Recommended aggressive blood pressure control for now and amlodipine 10 mg once daily and carvedilol 25 mg twice daily and losartan 25 mg once daily. Chest x-ray reviewed and showed minimal congestion NT-proBNP was slightly elevated and patient appears to be in heart failure exacerbation. Recommend to give IV Bumex 1 mg x 1. Keep patient with information greater than 2.0. Patient does have a history of CAD status post AURELIA in. Patient does not follow-up with cardiology regularly. Patient recommended to continue aspirin 81 mg once daily Plavix 75 mg once daily. Unlikely acute coronary syndrome presentation and previous mostly secondary to previous old inferior infarct. Recommend strict control of both hypertension as well as diabetes mellitus. Management of rest of the medical conditions as per primary team and other consultants. Thank you for the consult and allowing me to participate in the care of the patient. Cardiology will continue to follow. Alan Soares M.D. Interventional Cardiology
[2025-06-05] MEDS: ACETAMINOPHEN 500 MG TABLET 1000 MG PO (16:49)
[2025-06-05 17:49] LABS: Troponin I 0.737 ng/mL (0.0-0.045)
[2025-06-05] MEDS: BUMETANIDE INJ 0.25 MG/ML VIAL 4 ML 1 MG IVP (17:58)
[2025-06-05] MEDS: INSULIN LISPRO (AdmeLOG) 1 UNIT/0.01 ML UNIT SC (20:29)
--- NOTE | 2025-06-05 21:18 | XR_ITS ---
Examination: Retroperitoneal ultrasound, complete Technique: Multiple high resolution grayscale images of the retroperitoneum obtained, including kidneys and bladder. Exam date and time:June 05, 20255 hrs. Indications: Acute renal insufficiency and uncontrolled hypertension this week Findings: Right kidney 10.1 cm cortex 1.3 cm Left kidney 11.6 cm renal cortex 1.8 cm Moderate renal scar formation No hydronephrosis No bladder mass, bladder prevoid volume 1 91 cc Impression: Bilateral renal cortical thinning Moderate renal parenchymal scar formation No hydronephrosis
--- NOTE | 2025-06-05 21:18 | XR_ITS ---
Examination: Renal Doppler sonography Technique: Grayscale sonographic images kidneys with attention to peak systolic velocities resistive indices and renal aortic ratios Date and time: June 05, 2025 2131 hrs. Indications: Acute renal insufficiency and prominent hypertension this week Findings: Right kidney 9.8, renal cortex 1.5 cm Left kidney 11.5 cm cortex 1.6 cm No elevation septic systolic velocities Mild elevation resistive indices Normal renal aorta ratios Impression: No sonographic findings diagnostic for renal artery stenosis
[2025-06-06] VITALS (8 sets, daily range): BP systolic 143–158; BP diastolic 66–81; PULSE 62–81; RESP 13–16; TEMP 36.1–36.7; O2SAT 94–97; BMI 38.9
[2025-06-06 05:18] LABS: Basophils # (Auto) 0.1 Thou/mm3 (0.0-0.2); Basophils % (Auto) 1 % (0-2.5); Eosinophils # (Auto) 0.7 Thou/mm3 (0.0-0.5); Eosinophils % (Auto) 7 % (0-10); Hematocrit 33.7 % (36.0-46.0); Hemoglobin 10.7 g/dL (12.0-16.0); Immature Granulocytes Auto 0.04 Thou/mm3 (0.00-0.00); Lymphocytes # (Auto) 2.2 Thou/mm3 (1.0-4.8); Lymphocytes % (Auto) 22 % (10-50); Mean Corpuscular HGB Conc 31.8 g/dl (31.0-37.0); Mean Corpuscular Hemoglobin 25.2 pg (25.0-35.0); Mean Corpuscular Volume 80 fL (80-100); Monocytes # (Auto) 0.5 Thou/mm3 (0.0-0.8); Monocytes % (Auto) 5 % (0-12); Neutrophils # (Auto) 6.4 Thou/mm3 (1.8-7.7); Neutrophils % (Auto) 65 % (37-80); Nucleated Red Blood Cell # 0.00 Thou/mm3 (0.00-0.00); Nucleated Red Blood Cell % 0 /100 WBC (0); Platelet Count 326 Thou/mm3 (140-440); RDW Standard Deviation 41.1 fL (36.4-46.3); Red Blood Count 4.24 Miln/mm3 (4.00-5.20); White Blood Count 9.8 Thou/mm3 (3.6-11.0)
[2025-06-06 06:04] LABS: Alanine Aminotransferase 31 U/L (10-49); Albumin, Serum 3.9 gm/dL (3.4-4.8); Albumin/Globulin Ratio 1.8 (1.2-2.2); Alkaline Phosphatase 71 U/L (46-116); Anion Gap 10 (7-16); Aspartate Amino Transferase 33 U/L (0-34); BUN/Creatinine Ratio 11 Ratio (12-20); Bilirubin,Total 0.2 mg/dL (0.3-1.2); Blood Urea Nitrogen 15 mg/dL (9-23); Calcium 9.4 mg/dL (8.3-10.6); Calcium (Corrected) 9.5 mg/dL (8.5-10.1); Carbon Dioxide 25.3 mMol/L (20.0-31.0); Cardiac Risk Estimate 4.4 RATIO (3.7-5.6); Chloride 105 mMol/L (98-107); Cholesterol 161 mg/dL (132-200); Creatinine (Component) 1.4 mg/dL (0.6-1.3); Estimated Creatinine Clearance 40.2 mL/min (>60); Globulin 2.2 gm/dL (2.3-3.5); Glucose 177 mg/dL (74-106); HDL Cholesterol 37 mg/dL (40-60); LDL Cholesterol,Calculated 64 mg/dL (0-130); Magnesium 1.8 mg/dL (1.6-2.6); Osmolality,Calculated 284 (275-295); Phosphorous 3.5 mg/dL (2.4-5.1); Potassium 3.9 mMol/L (3.4-5.1); Sodium 140 mMol/L (136-145); Thyroid Stimulating Hormone 2.12 uIU/mL (0.55-4.78); Total Protein 6.1 gm/dL (5.7-8.2); Triglycerides 302 mg/dL (30-150); eGFR 42 See Note
[2025-06-06] MEDS: MAGNESIUM OXIDE 400 MG TABLET PO (07:38)
[2025-06-06] MEDS: LOSARTAN POTASSIUM 25 MG TABLET PO ×2 (08:11→10:45)
[2025-06-06] MEDS: HEPARIN SOD INJ 5000 UNIT/ML VIAL SC (08:12)
[2025-06-06] MEDS: ASPIRIN EC 81 MG TABEC PO (08:12)
[2025-06-06] MEDS: CLOPIDOGREL BISULFATE 75 MG TABLET PO (08:12)
[2025-06-06] MEDS: FAMOTIDINE INJ 10 MG/ML VIAL 2 ML 20 MG IVP (08:12)
[2025-06-06] MEDS: INSULIN LISPRO (AdmeLOG) 1 UNIT/0.01 ML UNIT SC ×2 (08:36→12:17)
--- NOTE | 2025-06-06 08:36 | ESPR_ITS ---
Documentation for date of: 06/06/25 Subjective Subjective Interval history: History of Present illness: 65y/o F with PMH of hypertension, type 2 diabetes mellitus, and coronary artery disease (CAD) status post three stent placements, presented to hospital on 06/05/2025, due to acute chest pain. 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 However, the pain was different from that of her previous MS in 2017, during which she felt more focalized sharp pain with severe difficulty in breathing. This time, she noted the pain was radiating to her upper torso and right side of her neck and chin along with slight discomfort in breathing. Endorses bilateral leg cramping at the time. Denies orthpnea, and paroxysmal nocturnal dyspnea and headache. Patient was admitted for hypertensive emergency and chest pain management. Nephrology was consulted for HTN emergency and POLY ED course: -Initial vitals were BP 199/93, Pulse 102, RR 18, temp 98.1, O2 sat 96% on room air -Labs significant for WBC 12, hemoglobin 11.1, hematocrit 34.9, creatinine 1.5, eGFR 39, glucose 660, alkaline phosphatase 140, trops 0.189 BNP 195, UA showed microalbumin 1576,microalb/cr ration 2388 -Imaging included CXR demonstrated mild cardiomegaly without overt pulmonary edema, infiltrate, or pneumothorax. EKG showed sinus tachycardia, rate of 101, no acute pathological ST segment changes, evidence of previous inferior wall MS -In the ED, patient was marked hypertensive and treated with a combination of topical nitrates, IV morphine, diltiazem 10 mg with gradual reduction of blood pressure. Patient received IV fluids and regular insulin for hyperglycemia Past Medical History: as mention above + asthma Family History: Daughter from ALL, aunt-ovarian cancer, uncle- oropharyngeal cancer Surgical History: Hysterectomy Social History: Denies history of smoking, denies current alcohol use, denies recreational drug use. Patient is , born and raised in [facility]. Used to work in [employer]. Current Medications: Prednisolone 20mg, metformin 500 mg twice daily, clopidogrel 75 daily, famotidine once, glimepiride, furosemide 20 mg twice daily, nitro 0.4, carvedilol 25 mg, hydralazine 50 mg twice daily. Allergies: Sulfa antibiotics/rash 06/05/2025: Labs reviewed and patient examined at the bedside. Patient feels much better after ED treatment. No longer feels chest pain or leg cramps. Continue to monitor for BP and HTN. BP: 143/68, BUN: 18, Cr:1.5, eGFR:39 06/06/2025: Labs reviewed and patient examined at the bedside. Patient continues to feel better. Has no other complaints. Renal artery US showed no renal artery stenosis, and Renal US showed bilateral renal cortical thinning, moderate renal parenchymal scar formation and no hydronephrosis. Patient noted that she recently got a lot of stress from her song getting diagnosed with ALL. Patient's HTN likely due to her stress. BUN:15, Cr: 1.4, eGFR:42 Exam Vital Signs Temp Pulse Resp BP Pulse Ox O2 Del Method 96.9 F 81 13 158/74 H 95 Room Air 06/06/25 04:00 06/06/25 08:11 06/06/25 04:00 06/06/25 08:11 06/06/25 04:00 06/06/25 04:00 Narrative Exam General: No acute distress, well nourished, AAO x3 Eye: normal conjunctiva, no scleral icterus HENT: Normocephalic, atraumatic, hearing intact to conversation at normal volume, moist oral mucosa Neck: Supple, non-tender, no JVD, no lymphadenopathy Lungs: Non-labored respirations, symmetric chest rise, Clear to auscultate bilaterally, No wheezing, rhonchi, crackles Heart: Peripheral pulses intact bilaterally, Regular Rate and Rhythm. Abdomen: Soft, non-tender, non-distended, no palpable masses Musculoskeletal: Normal range of motion and strength, No cyanosis or edema, No visible joint swelling Skin: Skin is warm, dry, no rashes or lesions. Psychiatric: Cooperative, appropriate mood and affect, Awake and alert, not agitated Neuro: Cranial nerves II-XII grossly intact. Sensations intact to light touch. Objective Labs 06/06/25 04:10 06/06/25 04:10 Labs: Laboratory Results - last 24 hr 06/05/25 06/05/25 06/05/25 01:13 11:05 16:45 WBC RBC Hgb Hct MCV MCH MCHC RDW Std Deviation Plt Count Neut % (Auto) Lymph % (Auto) [place] % (Auto) Eos % (Auto) Baso % (Auto) Neut # (Auto) Lymph # (Auto) [place] # (Auto) Eos # (Auto) Baso # (Auto) Immature Gran # (Auto) Absolute Nucleated RBC Immature Gran % Nucleated RBC % Sodium Potassium Chloride Carbon Dioxide Anion Gap BUN Creatinine Estim Creat Clear Calc eGFR BUN/Creatinine Ratio Glucose Estimated Ave Glu mg/dL 177 H Hemoglobin A1c 7.8 H Calculated Osmolality Calcium Corrected Calcium Phosphorus Magnesium Total Bilirubin AST ALT Alkaline Phosphatase Troponin I 0.776 H* 0.737 H* Total Protein Albumin Globulin Albumin/Globulin Ratio Triglycerides Cholesterol LDL Cholesterol, Calc HDL Cholesterol Cholesterol/HDL Ratio TSH 06/06/25 04:10 WBC 9.8 RBC 4.24 Hgb 10.7 L Hct 33.7 L MCV 80 MCH 25.2 MCHC 31.8 RDW Std Deviation 41.1 Plt Count 326 Neut % (Auto) 65 Lymph % (Auto) 22 [place] % (Auto) 5 Eos % (Auto) 7 Baso % (Auto) 1 Neut # (Auto) 6.4 Lymph # (Auto) 2.2 [place] # (Auto) 0.5 Eos # (Auto) 0.7 H Baso # (Auto) 0.1 Immature Gran # (Auto) 0.04 H Absolute Nucleated RBC 0.00 Immature Gran % 0 Nucleated RBC % 0 Sodium 140 Potassium 3.9 Chloride 105 Carbon Dioxide 25.3 Anion Gap 10 BUN 15 Creatinine 1.4 H Estim Creat Clear Calc 40.2 L eGFR 42 L BUN/Creatinine Ratio 11 L Glucose [address] Glu mg/dL Hemoglobin A1c Calculated Osmolality 284 Calcium 9.4 Corrected Calcium 9.5 Phosphorus 3.5 Magnesium 1.8 Total Bilirubin 0.2 L AST 33 ALT 31 Alkaline Phosphatase 71 D Troponin I Total Protein 6.1 Albumin 3.9 Globulin 2.2 L Albumin/Globulin Ratio 1.8 Triglycerides 302 H Cholesterol 161 LDL Cholesterol, Calc 64 HDL Cholesterol 37 L Cholesterol/HDL Ratio 4.4 TSH 2.12 Quality Measures Quality Measures none Assessment & Plan Assessment Current Active Medications: Generic Name Dose Route Start Last Admin Trade Name Freq PRN Reason Stop Dose Admin Acetaminophen 1,000 mg 06/05/25 16:43 06/05/25 16:49 Acetaminophen 500 Mg Tablet PO 07/05/25 16:42 1,000 mg Q6HR PRN Administration Fever >99.9 Amlodipine Besylate 10 mg 06/05/25 21:00 06/05/25 20:27 Amlodipine Besylate 5 Mg Tablet PO 07/05/25 20:59 10 mg HS DELISA Administration Aspirin 81 mg 06/05/25 09:00 06/06/25 08:12 Aspirin Ec 81 Mg Tabec PO 07/05/25 08:59 81 mg QDAY DELISA Administration Atorvastatin Calcium 10 mg 06/06/25 21:00 Atorvastatin Calcium 10 Mg Tablet PO 07/06/25 20:59 HS DELISA Carvedilol 25 mg 06/05/25 08:00 06/06/25 07:39 Carvedilol 12.5 Mg Tablet PO 07/05/25 07:59 25 mg BIDWM DELISA Administration Clopidogrel Bisulfate 75 mg 06/05/25 09:00 06/06/25 08:12 Clopidogrel Bisulfate 75 Mg Tablet PO 07/05/25 08:59 75 mg QDAY DELISA Administration Dextrose 50 ml 06/05/25 05:26 Dextrose 50%-Water Inj 50 Ml Syringe IV 07/05/25 05:25 Q15MIN PRN BG <50 OR BG <70 & pt unresponsive Famotidine 20 mg 06/05/25 09:15 06/06/25 08:12 Famotidine Inj 10 Mg/Ml Vial 2 Ml IVP 07/05/25 09:14 20 mg BID DELISA Administration Furosemide 20 mg 06/05/25 09:00 06/05/25 08:34 Furosemide 20 Mg Tablet PO 07/05/25 08:59 Not Given On Hold: 06/05/25 17:21 QAM DELISA Glucagon 1 mg 06/05/25 05:26 Glucagon Inj 1 Mg Vial IM Q15MIN PRN BG <70, and no IV access Heparin Sodium (Porcine) 5,000 unit 06/05/25 09:00 06/06/25 08:12 Heparin Sod Inj 5000 Unit/Ml Vial SC 06/19/25 08:59 5,000 unit BID DELISA Administration Insulin Human Lispro 0 unit 06/06/25 06:57 Insulin Lispro (Admelog) 1 Unit/0.01 Ml Unit SC 07/05/25 07:29 ACHS [facility] Protocol Losartan Potassium 25 mg 06/06/25 09:00 06/06/25 08:11 Losartan Potassium 25 Mg Tablet PO 07/06/25 08:59 25 mg QDAY DELISA Administration Morphine Sulfate 2 mg 06/05/25 05:38 Morphine Sulf Inj 4 Mg/Ml Vial IVP Q4HR PRN PAIN 4-6 Morphine Sulfate 4 mg 06/05/25 05:38 Morphine Sulf Inj 4 Mg/Ml Vial IVP 06/10/25 05:37 Q6HR PRN PAIN 7-10 Nitroglycerin 0.4 mg 06/05/25 05:32 Nitroglycerin 0.4 Mg Subl Btl #25 SL Q5MIN PRN CHEST PAIN Ondansetron HCl 4 mg 06/05/25 05:22 Ondansetron Inj 2 Mg/Ml Inj 2 Ml IVP 07/05/25 05:21 Q6H PRN NAUSEA OR VOMITING Protocol Plan 65y/o F with PMH of hypertension, type 2 diabetes mellitus, and coronary artery disease (CAD) status post three stent placements, presented to hospital on 06/05/2025, due to acute chest pain. Patient was admitted for hypertensive emergency and chest pain management. Nephrology was consulted for HTN emergency and POLY. #POLY #2/2 HTN emergency #Primary Essential HTN -Upon admission, BUN: 18, Cr:1.5, eGFR:39, BP 199/93, Pulse 102, RR 18 -POLY could be secondary to HTN emergency -Current BP:149/67, BUN:15, Cr: 1.4, eGFR:42 -CXR: Mild enlargement cardiac contour, Mild to moderate vascular congestion. Plan: -Continue to monitor for renal improvment -Avoid nephrotoxins -Renally dose medication -Continue amlodipine 10mg PO qd, Coreg 25mg PO bid, Losartan 50mg PO qd #Elevated troponin #NSTEMI I vs NSTEMI II #CAD multivessel disease #S/P 2 stents 2016 and 2023 #Hx of CHF #Hyperglycemia without ketosis #[id number] type 2 diabetes #Normocytic anemia #Leg cramps -Management per Primary Hospitalist team Thank you for allowing us to participate in the care of your patient. Assessment and plan discussed with my attending physician Dr. Nubia Sy (PGY-1)- Internal medicine resident Attending Provider Attestation/Addendum Patient seen and examined with resident physician Dr. Sy. Note reviewed, agree with findings and recommendations. patient currently seen in telemetry. History of coronary artery disease with multivessel disease and stents. Came with hypertensive emergency and POLY. Agree with current management of bringing the blood pressures down not quite sure which triggered the blood pressure. Patient admits to being under a lot of stress from her grandson who has leukemia. DC ibuprofen. Hold off on metformin. Renal ultrasound/renal Doppler negative. Secondary hypertension workup negative. Patient can be discharged on RAAS blockade.
--- NOTE | 2025-06-06 10:32 | ESPR_ITS ---
Documentation for date of: 06/06/25 Subjective Subjective Interval history: Patient seen and examined at bedside. Telemetry reviewed, no arrhythmias noted. Vitals and labs reviewed. BP 130-140/60-70s. Heart rate 60 to 70s. Patient feeling well today. No episodes of chest pain or pressure overnight. Patient denies shortness of breath, lightheadedness, dizziness or nausea vomiting. was not able to bring stent card. Patient reports that she was previously on statins however experienced severe left leg cramping due to the medication. Does not believe she has tried ezetimibe. Was previously on Nexlizet however discontinued due to insurance issues. Exam Vital Signs Temp Pulse Resp BP Pulse Ox O2 Del Method 97.1 F 81 16 158/74 H 94 L Room Air 06/06/25 08:00 06/06/25 08:11 06/06/25 08:00 06/06/25 08:11 06/06/25 08:00 06/06/25 08:00 Narrative Exam GENERAL: AOx3, no acute distress, sitting up comfortably in bed HEENT: NC/AT, mucous membranes moist, bilateral sclera anicteric CARDIOVASCULAR: regular rate and rhythm, S1/S2 present, 2/6 systolic murmur PULMONARY: clear to auscultation bilaterally, no rales/rhonchi/wheezes ABDOMINAL: soft, non-tender, non-distended, no rebound/guarding, bowel sounds present EXTREMITIES: no peripheral edema SKIN: warm and dry, intact, no rashes NEURO: CN II-XII grossly intact, no focal deficits, alert, following commands Objective Labs 06/06/25 04:10 06/06/25 04:10 Labs: Laboratory Results - last 24 hr 06/05/25 06/05/25 06/05/25 01:13 11:05 16:45 WBC RBC Hgb Hct MCV MCH MCHC RDW Std Deviation Plt Count Neut % (Auto) Lymph % (Auto) [place] % (Auto) Eos % (Auto) Baso % (Auto) Neut # (Auto) Lymph # (Auto) [place] # (Auto) Eos # (Auto) Baso # (Auto) Immature Gran # (Auto) Absolute Nucleated RBC Immature Gran % Nucleated RBC % Sodium Potassium Chloride Carbon Dioxide Anion Gap BUN Creatinine Estim Creat Clear Calc eGFR BUN/Creatinine Ratio Glucose Estimated Ave Glu mg/dL 177 H Hemoglobin A1c 7.8 H Calculated Osmolality Calcium Corrected Calcium Phosphorus Magnesium Total Bilirubin AST ALT Alkaline Phosphatase Troponin I 0.776 H* 0.737 H* Total Protein Albumin Globulin Albumin/Globulin Ratio Triglycerides Cholesterol LDL Cholesterol, Calc HDL Cholesterol Cholesterol/HDL Ratio TSH 06/06/25 04:10 WBC 9.8 RBC 4.24 Hgb 10.7 L Hct 33.7 L MCV 80 MCH 25.2 MCHC 31.8 RDW Std Deviation 41.1 Plt Count 326 Neut % (Auto) 65 Lymph % (Auto) 22 [place] % (Auto) 5 Eos % (Auto) 7 Baso % (Auto) 1 Neut # (Auto) 6.4 Lymph # (Auto) 2.2 [place] # (Auto) 0.5 Eos # (Auto) 0.7 H Baso # (Auto) 0.1 Immature Gran # (Auto) 0.04 H Absolute Nucleated RBC 0.00 Immature Gran % 0 Nucleated RBC % 0 Sodium 140 Potassium 3.9 Chloride 105 Carbon Dioxide 25.3 Anion Gap 10 BUN 15 Creatinine 1.4 H Estim Creat Clear Calc 40.2 L eGFR 42 L BUN/Creatinine Ratio 11 L Glucose [address] Glu mg/dL Hemoglobin A1c Calculated Osmolality 284 Calcium 9.4 Corrected Calcium 9.5 Phosphorus 3.5 Magnesium 1.8 Total Bilirubin 0.2 L AST 33 ALT 31 Alkaline Phosphatase 71 D Troponin I Total Protein 6.1 Albumin 3.9 Globulin 2.2 L Albumin/Globulin Ratio 1.8 Triglycerides 302 H Cholesterol 161 LDL Cholesterol, Calc 64 HDL Cholesterol 37 L Cholesterol/HDL Ratio 4.4 TSH 2.12 Quality Measures Quality Measures none Assessment & Plan Assessment Current Active Medications: Generic Name Dose Route Start Last Admin Trade Name Tobias PRN Reason Stop Dose Admin Acetaminophen 1,000 mg 06/05/25 16:43 06/05/25 16:49 Acetaminophen 500 Mg Tablet PO 07/05/25 16:42 1,000 mg Q6HR PRN Administration Fever >99.9 Amlodipine Besylate 10 mg 06/05/25 21:00 06/05/25 20:27 Amlodipine Besylate 5 Mg Tablet PO 07/05/25 20:59 10 mg HS DELISA Administration Aspirin 81 mg 06/05/25 09:00 06/06/25 08:12 Aspirin Ec 81 Mg Tabec PO 07/05/25 08:59 81 mg QDAY DELISA Administration Atorvastatin Calcium 10 mg 06/06/25 21:00 Atorvastatin Calcium 10 Mg Tablet PO 07/06/25 20:59 HS DELISA Carvedilol 25 mg 06/05/25 08:00 06/06/25 07:39 Carvedilol 12.5 Mg Tablet PO 07/05/25 07:59 25 mg BIDWM DELISA Administration Clopidogrel Bisulfate 75 mg 06/05/25 09:00 06/06/25 08:12 Clopidogrel Bisulfate 75 Mg Tablet PO 07/05/25 08:59 75 mg QDAY DELISA Administration Dextrose 50 ml 06/05/25 05:26 Dextrose 50%-Water Inj 50 Ml Syringe IV 07/05/25 05:25 Q15MIN PRN BG <50 OR BG <70 & pt unresponsive Famotidine 20 mg 06/05/25 09:15 06/06/25 08:12 Famotidine Inj 10 Mg/Ml Vial 2 Ml IVP 07/05/25 09:14 20 mg BID DELISA Administration Furosemide 20 mg 06/05/25 09:00 06/05/25 08:34 Furosemide 20 Mg Tablet PO 07/05/25 08:59 Not Given On Hold: 06/05/25 17:21 QAM DELISA Glucagon 1 mg 06/05/25 05:26 Glucagon Inj 1 Mg Vial IM Q15MIN PRN BG <70, and no IV access Heparin Sodium (Porcine) 5,000 unit 06/05/25 09:00 06/06/25 08:12 Heparin Sod Inj 5000 Unit/Ml Vial SC 06/19/25 08:59 5,000 unit BID DELISA Administration Insulin Human Lispro 0 unit 06/06/25 06:57 06/06/25 08:36 Insulin Lispro (Admelog) 1 Unit/0.01 Ml Unit SC 07/05/25 07:29 2 unit ACHS DELISA Administration Protocol Losartan Potassium 50 mg 06/07/25 09:00 Losartan Potassium 25 Mg Tablet PO 07/07/25 08:59 QDAY DELISA Nitroglycerin 0.4 mg 06/05/25 05:32 Nitroglycerin 0.4 Mg Subl Btl #25 SL Q5MIN PRN CHEST PAIN Ondansetron HCl 4 mg 06/05/25 05:22 Ondansetron Inj 2 Mg/Ml Inj 2 Ml IVP 07/05/25 05:21 Q6H PRN NAUSEA OR VOMITING Protocol Plan Ana Dumont 65F pmhx significant for HTN, NIDDM2, CAD s/p DESx3 on Plavix, asthma and GERD who presents with chest pain, admitted for NSTEMI. Cardiology consulted for NSTEMI workup. #Hypertensive emergency #NSTEMI likely type II #HFpEF (60-35% 05/2025) #Essential HTN Patient was admitted for hypertensive emergency of blood pressure 199/93 with troponins elevated <0.020 ->0.189->0.736->0.776->0.737. BNP 135. Per patient, she was undergoing hypertension medication changes. Patient reports 5 out of 10 chest pressure rating to the right jaw and right arm with associated feelings of clamminess while she was seated watching television. Patient did not take nitroglycerin at that time. Patient reports history of CHF but does not remember EF. EKG shows sinus rhythm with rate [address] elevation. CXR shows mild enlargement cardiac contour, mild to moderate vascular congestion. 06/05/25 TTE shows normal LV size and function, mild FL VH, grade 1 diastolic function, EF estimated 60 to 65%. Normal RV size and function, RVSP mildly elevated at 30-35 mmHg, mild aortic valve sclerosis without stenosis, mild TR and MR, no significant pericardial effusion, IVC not visualized well NSTEMI likely type II as troponins have plateaued. Etiology includes CHF exacerbation with elevated BNP from 65 in 02/2025 to 135 currently furthermore patient is also obese which underestimates BNP versus hypertensive emergency causing elevated troponins vs multifactorial with fluid accumulation influencing hypertension. Although patient is not overtly fluid overloaded with no leg edema or crackles on lung auscultation, possible fluid accumulation in gut. Plan: - BP management: amlodipine 10 mg QD, losartan 50 mg QD, and carvedilol 25 mg BID - Strict I&Os, daily weights, 1.5L fluid restriction - No indication for heparin drip at this time as troponins have plateaued and NSTEMI likely type II - CTM vitals - Keep K>4 and Mg>2 #CAD s/p DESx3 (2016, 2023) Per history. Patient reports receiving 2 stents in 2016 and [address] Meneses, family believes. Is adherent to Plavix and ASA. NSTEMI less likely type I as troponins have plateaued. Plan: - Recommend to continue Plavix and ASA - Recommend to start alternative lipid lowering agent outpatient such as Repatha with close monitoring as patient experiences severe leg cramping with statins #NIDDM2 #HLD Patient's last A1c on 05/16/2025 is 7.6. Home medication includes glimepiride 2 mg daily. Patient is not on any cholesterol medication at home due to severe leg cramping with statins. Triglycerides 302, cholesterol 161, LDL 64, HDL 37 Plan: - SSI - As above, recommend alternative lipid-lowering agent - Management per primary team #Hyperglycemia without ketosis #[id number] type 2 diabetes #Acute kidney injury #Normocytic anemia #Leg cramps Plan: - Management per primary team Plan of care discussed with attending Dr. Soares station operator. Lilli Little DO PGY-1 Internal Medicine Attending Provider Attestation/Addendum I have personally seen and examined the patient separately on the above date of service and discussed the plan of care with the resident. I reviewed the resident Dr. Lilli Little consultation progress note and agree with the resident findings and plan in the note above and have also edited the documentation to reflect my findings and plan. A 65-year-old female with a history of CAD status post PCI with 3 AURELIA stents on Plavix, essential hypertension, type diabetes mellitus, asthma, GERD presented to the emergency department for further evaluation of some chest pain chest pressure radiating to the right jaw as well as right arm mostly hemoglobin levels.. On presentation to the emergency department patient was found to have elevated blood pressure of 189/93 mmHg and heart rate of 100 to 2 bpm afebrile. Labs showed BUN of 18 creatinine of 1.5, WBC of 12 hemoglobin of 11. A1c 7.8. Troponins initially were negative and the value increased to 0.7 and then down trended. NT-proBNP was 195. EKG showed normal sinus rhythm without any acute ST-T changes suggestive of ischemia. Old Q waves in inferior leads noted and unchanged from before. Cardiology was consulted for further evaluation given the elevated blood pressure and hypertensive emergency along with elevated troponins. Patient was found to have hypertensive urgency and troponin elevation mostly secondary to NSTEMI type II. Denies any Chest pain or chest pressure since the improvement in the blood pressure. Recommended to check an echocardiogram to rule out any regional wall motion abnormalities and evaluate LV function hypertension as well as diastolic function. Recommended aggressive blood pressure control for now and amlodipine 10 mg once daily and carvedilol 25 mg twice daily and losartan 25 mg once daily. Nephrology also following the patient and the increase losartan to 50 mg once daily and blood pressure better controlled right now. Renal duplex was negative for any renal artery stenosis. Renal ultrasound showed mild scarring of the bilateral kidneys and medical renal disease. Echo did not show any regional wall motion abnormalities and no evidence of any thrombus patient is feeling better after the blood pressure control. Normal LV size and function. Mild LVH. Grade I diastolic dysfunction. EF estimated 60-65 %. Normal RV size and function. RVSP mildly elevated at 30 to 35 mmHg. Mild aortic valve sclerosis without stenosis. Mild TR and MR. No significant pericardial effusion. IVC was not visualized well. Chest x-ray reviewed and showed minimal congestion NT-proBNP was slightly elevated and patient appears to be in heart failure exacerbation. Recommend to give IV Bumex 1 mg x 1. Keep potassium greater than 4.0 and magnesium greater than 2.0 contrast. Patient does have a history of CAD status post AURELIA x3. Patient does not follow- up with cardiology regularly. Patient recommended to continue aspirin 81 mg once daily Plavix 75 mg once daily. Unlikely acute coronary syndrome presentation and previous mostly secondary to previous old inferior infarct. Recommend strict control of both hypertension as well as diabetes mellitus. Patient recommended to follow-up with cardiology in 1 week. Management of rest of the medical conditions as per primary team and other consultants. Thank you for the consult and allowing me to participate in the care of the patient. Cardiology will continue to follow. Alan Soares M.D. Interventional Cardiology
--- NOTE | 2025-06-06 12:57 | PD.RESPRO ---
Documentation for date of: 06/06/25 Exam Vital Signs Temp Pulse Resp BP Pulse Ox O2 Del Method 97.1 F 80 16 149/67 H 94 L Room Air 06/06/25 08:00 06/06/25 10:45 06/06/25 08:00 06/06/25 10:45 06/06/25 08:00 06/06/25 08:00 Objective Labs 06/06/25 04:10 06/06/25 04:10 Labs: Laboratory Results - last 24 hr 06/05/25 06/06/25 16:45 04:10 WBC 9.8 RBC 4.24 Hgb 10.7 L Hct 33.7 L MCV 80 MCH 25.2 MCHC 31.8 RDW Std Deviation 41.1 Plt Count 326 Neut % (Auto) 65 Lymph % (Auto) 22 [place] % (Auto) 5 Eos % (Auto) 7 Baso % (Auto) 1 Neut # (Auto) 6.4 Lymph # (Auto) 2.2 [place] # (Auto) 0.5 Eos # (Auto) 0.7 H Baso # (Auto) 0.1 Immature Gran # (Auto) 0.04 H Absolute Nucleated RBC 0.00 Immature Gran % 0 Nucleated RBC % 0 Sodium 140 Potassium 3.9 Chloride 105 Carbon Dioxide 25.3 Anion Gap 10 BUN 15 Creatinine 1.4 H Estim Creat Clear Calc 40.2 L eGFR 42 L BUN/Creatinine Ratio 11 L Glucose 177 H Calculated Osmolality 284 Calcium 9.4 Corrected Calcium 9.5 Phosphorus 3.5 Magnesium 1.8 Total Bilirubin 0.2 L AST 33 ALT 31 Alkaline Phosphatase 71 D Troponin I 0.737 H* Total Protein 6.1 Albumin 3.9 Globulin 2.2 L Albumin/Globulin Ratio 1.8 Triglycerides 302 H Cholesterol 161 LDL Cholesterol, Calc 64 HDL Cholesterol 37 L Cholesterol/HDL Ratio 4.4 TSH 2.12 Quality Measures Quality Measures none Assessment & Plan Assessment Current Active Medications: Generic Name Dose Route Start Last Admin Trade Name Freq PRN Reason Stop Dose Admin Acetaminophen 1,000 mg 06/05/25 16:43 06/05/25 16:49 Acetaminophen 500 Mg Tablet PO 07/05/25 16:42 1,000 mg Q6HR PRN Administration Fever >99.9 Amlodipine Besylate 10 mg 06/05/25 21:00 06/05/25 20:27 Amlodipine Besylate 5 Mg Tablet PO 07/05/25 20:59 10 mg HS DELISA Administration Aspirin 81 mg 06/05/25 09:00 06/06/25 08:12 Aspirin Ec 81 Mg Tabec PO 07/05/25 08:59 81 mg QDAY DELISA Administration Atorvastatin Calcium 10 mg 06/06/25 21:00 Atorvastatin Calcium 10 Mg Tablet PO 07/06/25 20:59 HS DELISA Carvedilol 25 mg 06/05/25 08:00 06/06/25 07:39 Carvedilol 12.5 Mg Tablet PO 07/05/25 07:59 25 mg BIDWM DELISA Administration Clopidogrel Bisulfate 75 mg 06/05/25 09:00 06/06/25 08:12 Clopidogrel Bisulfate 75 Mg Tablet PO 07/05/25 08:59 75 mg QDAY DELISA Administration Dextrose 50 ml 06/05/25 05:26 Dextrose 50%-Water Inj 50 Ml Syringe IV 07/05/25 05:25 Q15MIN PRN BG <50 OR BG <70 & pt unresponsive Famotidine 20 mg 06/05/25 09:15 06/06/25 08:12 Famotidine Inj 10 Mg/Ml Vial 2 Ml IVP 07/05/25 09:14 20 mg BID DELISA Administration Furosemide 20 mg 06/05/25 09:00 06/05/25 08:34 Furosemide 20 Mg Tablet PO 07/05/25 08:59 Not Given On Hold: 06/05/25 17:21 QAM DELISA Glucagon 1 mg 06/05/25 05:26 Glucagon Inj 1 Mg Vial IM Q15MIN PRN BG <70, and no IV access Heparin Sodium (Porcine) 5,000 unit 06/05/25 09:00 06/06/25 08:12 Heparin Sod Inj 5000 Unit/Ml Vial SC 06/19/25 08:59 5,000 unit BID DELISA Administration Insulin Human Lispro 0 unit 06/06/25 06:57 06/06/25 12:17 Insulin Lispro (Admelog) 1 Unit/0.01 Ml Unit SC 07/05/25 07:29 3 unit ACHS DELISA Administration Protocol Losartan Potassium 50 mg 06/07/25 09:00 Losartan Potassium 25 Mg Tablet PO 07/07/25 08:59 QDAY [facility] Nitroglycerin 0.4 mg 06/05/25 05:32 Nitroglycerin 0.4 Mg Subl Btl #25 SL Q5MIN PRN CHEST PAIN Ondansetron HCl 4 mg 06/05/25 05:22 Ondansetron Inj 2 Mg/Ml Inj 2 Ml IVP 07/05/25 05:21 Q6H PRN NAUSEA OR VOMITING Protocol
--- NOTE | 2025-06-06 13:22 | ESDS_ITS ---
<Statement entered by Talita Jasso DO - 06/07/25 16:14> I, Talita Jasso DO, attest that I was physically present for the miller portions of the service and evaluated the patient with the resident and I reviewed and discussed the case with the resident and agree with the resident's findings and plans of care as documented above <Statement entered by Blayne Garrett MD - 06/06/25 14:45> Note reviewed and agree with care plan as documented. Please refer to the note below for further details. Plan discussed with attending physician Dr. Louisa Garrett MD PGY-2 Internal Medicine Planned Discharge Date 06/06/25 DS: Providers Provider Date of admission: 06/05/25 05:22 Primary care physician: Bibi Delacruz MD Admitting Provider: Otoniel Corcoran MD Attending Provider on Admission: Talita Jasso DO Consults: 06/05/25 05:22 Consult to Cardiology Routine Comment: NSTEMI type 2 vs. 1 Consulting Provider: Alan Soares Consult to Nephrology Routine Comment: Hypertensive emergency Consulting Provider: Bibi Delacruz 06/05/25 10:44 Referral Registered Dietitian Routine Comment: Attending Provider on DC: Talita Jasso DO Discharging Provider: Tom Chacko DO PGY-1 DS: Diagnosis Discharge Diagnosis (1) Non-ST elevation [place] (NSTEMI): Status: Acute Problem List Completed Was Problem List Reviewed/Reconciled?: Yes Hospital Course Hospital Course Hospital course: Hospital Course: 65y/o F with PMH of hypertension, type 2 diabetes mellitus, and coronary artery disease (CAD) status post three stent placements, presented to hospital on 06/05/2025, due to acute chest pain. Patient noted that she felt sharp, 6/10, substernal chest pain the morning of presentation. However, the pain was different from that of her previous [place] in 2017, during which she felt more focalized sharp pain with severe difficulty in breathing. This time, she noted the pain was radiating to her upper torso and right side of her neck and chin along with slight discomfort in breathing. She endorsed bilateral leg cramping at the time. She denied orthpnea, and paroxysmal nocturnal dyspnea and headache. She was found to be in hypertensive emergency with a BP of 199/93 and was treated with nitrates and diltiazem. She was also treated with insulin on arrival for glucose of 660. Patient was admitted for hypertensive emergency and chest pain management. The patient's troponins plateaued and her chest pain improved. Her blood pressure was controlled and she was diuresed with Bumex because Lasix caused her to have muscle aches. Her blood sugar was brought under control. The patient did have an POLY and nephrotoxic agents were avoided. The patient was having severe leg cramps and was given gabapentin. Cardiology was consulted and did not pursue a catheterization during this stay. The patient's vitals are stable on discharge. She will be discharged on carvedilol, losartan, and started on Januvia. 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 Problem List: #Elevated troponin #NSTEMI likely type II #CAD multivessel disease #S/P 2 stents 2016 and 2023 #History of CHF #Hypertensive emergency #Primary hypertension #Hyperglycemia without ketosis #[id number] type 2 diabetes #Acute kidney injury #Normocytic anemia #Leg cramps Discharge Instructions: ? Continue taking all other home medications as prescribed ? Follow-up with PCP within 1-2 weeks of discharge ? Follow-up with Dr. Soares, cardiology, within 1-2 weeks of discharge ? Your carvedilol has been increased from 12.5 to 25 mg twice per day ? You've been started on losartan 50 mg daily ? You've been started on Januvia 50 mg for your diabetes ? Your glimepiride, hydralazine, ibuprofen, and prednisone have been stopped ? Return to ED if symptoms worsen or recur The patient was seen and discussed with my attending physician Dr. Jasso and my senior resident Dr. Tami COLBERT PGY-2. Tom Chacko DO PGY-1 Time Spent with Patient Time attestation: Total time spent providing and/or coordinating discharge services: More than 50% Time spent: Greater than 30 minutes Exam Vital Signs Temp Pulse Resp BP Pulse Ox O2 Del Method 97.1 F 80 16 149/67 H 94 L Room Air 06/06/25 08:00 06/06/25 10:45 06/06/25 08:00 06/06/25 10:45 06/06/25 08:00 06/06/25 08:00 Narrative Exam General: Awake and in no acute distress. Conversational and non-toxic appearing. Neurologic: GCS 15. Alert and oriented x3, no gross neurological deficit, and patient able to move all 4 extremities. HEENT: Normocephalic, atraumatic, mucous membranes moist. Pupils reactive to light. Heart: Regular rate and rhythm, normal S1 and S2, 2/6 systolic murmur. Lungs: Clear to auscultation bilaterally with no wheezing or crackles. Abdomen: Soft, nondistended, nontender, positive bowel sounds. No guarding or rebound tenderness. Extremities: No edema. 2+ radial and dorsalis pedis pulses bilaterally. Skin: Warm. Dry. No rash or ecchymoses. Discharge Plan Plan Patient Disposition: HOME (Self Care) Care Plan Goals: ? Continue taking all other home medications as prescribed ? Follow-up with Primary care provider within 1-2 weeks of discharge ? Follow-up with Dr. Soares, cardiology, within 1-2 weeks of discharge ? Your carvedilol has been increased from 12.5 to 25 mg twice per day ? You've been started on losartan 50 mg daily ? You've been started on Januvia 50 mg for your diabetes ? Your glimepiride, hydralazine, ibuprofen, and prednisone have been stopped ? Return to ED if symptoms worsen or recur Prescriptions/Referrals Prescriptions/Med Rec: New carvedilol 25 mg tablet 25 mg PO BIDWM 30 Days Qty: 60 0RF Januvia 50 mg tablet 50 mg PO QDAY Qty: 30 0RF losartan 50 mg tablet 50 mg PO QDAY 30 Days Qty: 30 0RF Continued metformin [Glucophage] 500 MG tablet 500 mg PO BIDAC Qty: 0 amlodipine [Norvasc] 10 MG tablet 10 mg PO QDAY Qty: 0 famotidine 20 mg tablet 20 mg PO DAILY clopidogrel 75 mg tablet 75 mg PO DAILY levocetirizine 5 mg tablet 5 mg PO DAILY Patient Comments: TAKE 1 TABLET BY MOUTH EVERY DAY aspirin 81 mg tablet,chewable 81 mg PO QDAY nitroglycerin [Nitrostat] 0.4 mg tablet, sublingual 0.4 mg buccal PRN Patient Comments: 1 tablet Q5MIN for chest pain. No more than 3 tablets in 15 minutes. Breztri Aerosphere 160-9-4.8 mcg/actuation HFA aerosol inhaler 2 inh inhalation BID Discontinued ibuprofen 800 MG tablet 800 mg PO Q8HR PRN (Reason: PAIN) Qty: 0 hydralazine 50 mg tablet 50 mg PO BID prednisone 20 mg tablet 20 mg PO DAILY Patient Comments: TAKE 1 TABLET BY MOUTH EVERY DAY glimepiride 2 mg tablet 2 mg PO DAILY Patient Comments: TAKE 1 TABLET BY MOUTH EVERY DAY carvedilol 12.5 mg tablet 12.5 mg PO BID Referrals: Bibi Delacruz MD [Primary Care Provider, Nephrology] Patient/Caregiver Discharge Instructions Education Materials: Kidney Problems, CKD Dc, Diabetes Learn Serve Portion Size, Diabetes: Meal Planning, Diabetes Carbs Fats Protein Print Language: Azeri Stand Alone Forms: [employer] Info., Patient Portal Info Letter Discharge Order Discharge Orders: Discharge (Routine); Ordered 06/06/25 Ordered By: Blayne Garrett Quality Discharge Quality Measures none
--- NOTE | 2025-06-06 14:11 | PC.NURSE ---
Pt. self removed box and refused to replace it on chest. pt. waiting for ride.
== END 2025-06-06 14:35 | disposition home or self-care (01) | DRG 281 ==
LOC: SERX 06-05 04:32 → SERHOLD 06-05 05:58 → S2NX 06-05 06:46
PROVIDERS: Admitting Provider Internal Medicine; Emergency Provider Emergency Medicine; PCP Internal Medicine; Visit Provider Internal Medicine
DX: I16.1 Hypertensive emergency (principal); I50.30 Unspecified diastolic (congestive) heart failure; I21.A1 Myocardial infarction type 2; N17.9 Acute kidney failure, unspecified; I11.0 Hypertensive heart disease with heart failure; I25.10 Atherosclerotic heart disease of native coronary artery without angina pectoris; Z95.5 Presence of coronary angioplasty implant and graft; E11.65 Type 2 diabetes mellitus with hyperglycemia; D64.9 Anemia, unspecified; R25.2 Cramp and spasm; E78.5 Hyperlipidemia, unspecified; E66.9 Obesity, unspecified; I25.2 Old myocardial infarction; J45.909 Unspecified asthma, uncomplicated; Z79.84 Long term (current) use of oral hypoglycemic drugs; Z79.899 Other long term (current) drug therapy; I35.8 Other nonrheumatic aortic valve disorders; Z87.891 Personal history of nicotine dependence; Z90.710 Acquired absence of both cervix and uterus; Z88.2 Allergy status to sulfonamides; Z68.39 Body mass index [BMI] 39.0-39.9, adult; Z63.4 Disappearance and death of family member
CPT/HCPCS: 36415; 71045; 76770; 80048; 80053; 80061; 83036; 83735; 83880; 84100; 84443; 84484; 85025; 93005; 93306; 93970; 93975; 96361; 96374; 99284; J0780; J1644; J1815; J2270; J3475; J3490; J7050; A9270